=== PATIENT | male | born 1990 | race Caucasian/White ===

== ENCOUNTER 2018-01-18 19:11 | Emergency (ER) | payer MEDICAID, SELFPAY ==
[2018-01-18 19:12] VITALS: BP 140/80; PULSE 114; RESP 16; TEMP 36.8; O2SAT 98; BMI 31.7
--- NOTE | 2018-01-18 20:02 | RAD_ITS ---
STUDY: X-RAY - LEFT FOOT CLINICAL: Male, 27 years old. Pain. Horse stepped on foot. TECHNIQUE: 3 view(s) of the foot. COMPARISON: None. FINDINGS: There is no evidence of fracture or dislocation. There are no significant degenerative changes. There are no radiodense foreign bodies. RAD/Foot min 3 Views IMPRESSION: No fracture or dislocation. Electronically Signed: Nikko Sanderson, at 20:28 EDT Tel , Service support ,
[2018-01-18 20:28] LABS: Absolute Lymphocyte Count 2.46 X10^3/ul (0.83-4.51); Basophil# 0.02 X10^3/uL; Basophil% 0.2 % (0-1); Eosinophil# 0.12 X10^3/uL; Eosinophils% 1.3 % (0-5); Hematocrit 44.8 % (40-54); Hemoglobin 15.4 g/dl (13.0-16.5); Lymphocyte # 2.46 X10^3/ul (4.0); Lymphocyte % 27.3 % (19-41); Mean Corp Hgb Conc 34.4 g/gl (32-36); Mean Corpuscular Hgb 28.3 pg (27.0-32.0); Mean Corpuscular Volume 82.2 fL (80-94); Monocyte# 0.44 X10^3/uL; Monocyte% 4.9 % (0-10); Neutrophil # 5.95 X10^3/uL (2.7-7.7); Neutrophil % 66.2 % (47-70); POSITIVE COUNT NO; POSITIVE DIFFERENTIAL NO; POSITIVE MORPHOLOGY NO; Platelet Count 250 K/mm3 (150-450); RBC Distribution Width CV 12.5 % (11.6-14.6); RBC Distribution Width SD 36.9 fl (35.1-43.9); Red Blood Count 5.45 M/mm3 (4.6-6.2)
[2018-01-18 20:33] LABS: Anion Gap 5 (5-15); BUN 15 mg/dL (7-18); BUN/Creat Ratio 14.9 RATIO (10-20); Calcium,Total 8.9 mg/dL (8.5-10.1); Chloride 105 mmol/L (98-107); Creatinine, Serum 1.01 mg/dL (0.70-1.30); EST Glomerular Filtration Rate 94 mL/min (>60); Est Glom Filt Rate - Afr Amer 114 mL/min (>60); Estimated Creatinine Clearance 110.83 ml/min; Glucose 228 mg/dL (74-106); Potassium 3.6 mmol/L (3.5-5.1); Sodium Level 139 mmol/L (136-145)
--- NOTE | 2018-01-18 21:26 | ED.DCSUM_ITS ---
- ER Visit Summary Date of Service: 01/18/18 Chief Complaint: Foot injury with possible infection History of Present Illness: The patient is a 27 M who had his left foot stepped on by a horse 2 or 3 weeks ago. He states toes 3 through 5 were ecchymotic. He then developed a red swollen lesion at the base of his fourth toe. He does admit he tried to open it a few days ago but did not get any drainage out of it. He is a diabetic and states his blood sugars have been doing okay. He denies fever or chills. Physical Examination: Vital signs significant for heart rate 114, otherwise normal. Patient sitting upright in bed no acute distress. He is nontoxic appearing. Head neck examination is normal. Heart is regular rate and rhythm without murmur. Lung sounds are clear. Lower extremity examination was erythema with mild edema to the proximal left fourth toe. There is minimal erythema over the metatarsal region of his foot. There is no lymphangitic streaking. I do not find any evidence of fluctuance or focal abscess. Test Results: CBC and chemistry studies are significant only for glucose of 228. Left foot x-rays shows no fracture or dislocation. No underlying bone changes. Emergency Department Course and Treatment: Patient be treated with Bactrim and Keflex. He was advised if erythema worsens or if he gets lymphangitic streaking he is to return for IV antibiotics. Treatment Plan: [] Disposition: Discharge Impression: Left foot cellulitis This note was generated with [employer] dictation software. It may contain incorrect words, spelling, and punctuation that were not noted in review of the chart prior to signing ED Disposition - Plan for ED Patient: Chief Complaint: Wound Referrals: Mervin Short MD [Primary Care Provider] -
--- NOTE | 2018-01-18 21:26 | ED.DEP ---
ED Disposition - Plan for ED Patient: Disposition: Home or Assisted Living Chief Complaint: Wound Instructions: ED Infec Skin Cellulitis Prescriptions: Cephalexin [Keflex] 500 mg PO Q6 #40 capsule Smz/Tmp Ds [Bactrim Ds] 1 tablet PO BID #20 tablet Referrals: Mervin Short MD [Primary Care Provider] - 1 Week
[2018-01-18] MEDS: Smz/Tmp Ds Tablet 1 TABLET PO (21:50)
[2018-01-18] MEDS: Cephalexin 250 MG Capsule 500 MG PO (21:50)
[2018-01-18 21:51] VITALS: BP 141/91; RESP 18; O2SAT 98
== END 2018-01-18 21:52 | disposition home or self-care (01) ==
PROVIDERS: Emergency Provider Emergency Medicine; Family Provider Family Medicine; PCP Family Medicine
DX: L03.032 Cellulitis of left toe (principal); B96.89 Other specified bacterial agents as the cause of diseases classified elsewhere; E11.9 Type 2 diabetes mellitus without complications; Z79.4 Long term (current) use of insulin
CPT/HCPCS: 73630; 80048; 85025; 99284; A4216

== ENCOUNTER → 2018-05-10 09:34 | Outpatient (CLI) | payer MEDICAID, SELFPAY ==
[2018-05-10 08:21] VITALS: BMI 33.8
[2018-05-10 11:28] LABS: Hemoglobin A1c 8.7 % (4.2-6.3)
[2018-05-10 11:37] LABS: Microalbumin,Random Urine 67.9 mg/L (NO RANGE EST.); Microalbumin:Creatinine Ratio 21.2 mg/g CRE (<30 mg/g CRE)
[2018-05-10 11:41] LABS: ALB/GLOB Ratio 1.1 RATIO (0.9-2.4); AST(SGOT) 31 U/L (15-37); Alanine Aminotransfer ALT/SGPT 37 U/L (16-61); Albumin, Serum 3.2 g/dL (3.2-5.0); Alkaline Phosphatase 103 U/L (45-117); Anion Gap 11 (5-15); BUN 12 mg/dL (7-18); Calcium,Total 8.1 mg/dL (8.5-10.1); Chloride 104 mmol/L (98-107); Cholesterol 82 mg/dL (200); EST Glomerular Filtration Rate 124 mL/min (>60); Est Glom Filt Rate - Afr Amer 149 mL/min (>60); Globulin 2.8 g/dL (2.2-4.2); Glucose 187 mg/dL (74-106); High Density Lipoprotein 32 mg/dL; Potassium 3.3 mmol/L (3.5-5.1); Sodium Level 142 mmol/L (136-145); Triglycerides 47 mg/dL; Very Low Density Lipoprotein 9 mg/dL (5-40)
== END ==
PROVIDERS: Family Provider Family Medicine; PCP Family Medicine; Referring Provider Nurse Practitioner; Visit Provider Nurse Practitioner
DX: E10.65 Type 1 diabetes mellitus with hyperglycemia (principal)
CPT/HCPCS: 36415; 80053; 80061; 82043; 82570; 83036

== ENCOUNTER 2018-05-13 03:02 | Observation (INO) | payer MEDICAID, SELFPAY ==
[2018-05-10 08:21] VITALS: BMI 33.8
[2018-05-13] VITALS (17 sets, daily range): BP systolic 119–170; BP diastolic 67–78; PULSE 59–103; RESP 16–31; TEMP 36.8–37.1; O2SAT 79–98; BMI 34.6; BMI 32.5
--- NOTE | 2018-05-13 03:09 | ED.RN ---
NO OLD EKGS IN MUSE.
--- NOTE | 2018-05-13 03:18 | EKG12_ITS ---
Test Reason : SOB Blood Pressure : / mmHG Vent. Rate : 081 BPM Atrial Rate : 081 BPM P-R Int : 150 ms QRS Dur : 082 ms QT Int : 360 ms P-R-T Axes : 056 019 041 degrees QTc Int : 418 ms Normal sinus rhythm Normal ECG Confirmed by PABLO SOLOMON MD ([id number]), purchase request editor BETO BROWN ([id number]) on 05/14/2018 2:29:20 PM Referred By: Effie Felix Confirmed By:PABLO SOLOMON MD
--- NOTE | 2018-05-13 03:18 | RAD_ITS ---
HISTORY: sob, chest tightntess. 79% on room air upon arrival EXAM: XR Chest 2 Views: COMPARISON: None FINDINGS: EKG leads. Normal heart size. Nonspecific bilateral interstitial opacity, worse on the right, representing edema or possibly infiltrates. Fissural thickening is present and this favors edema. No pleural effusion. No pneumothorax. The bony thorax appears intact. RAD/Chest PA and Lateral IMPRESSION: 1. Bilateral widespread interstitial edema or possibly infiltrates, worse on the right. 2. Patient age of 28 years and interstitial fibrosis is believed unlikely. at 0404 Reported and signed by: Polo Leon MD Electronically Signed: Polo Leon, at 4:01 EST Tel , Service support ,
--- NOTE | 2018-05-13 03:19 | ED.VISSUMM ---
- ER Visit Summary Date of Service: 05/13/18 Chief Complaint: [] Shortness of breath History of Present Illness: The patient is a 28 M shortness of breath for the last 7 hours at rest continuous worse with exertion. No cough. He has had some chest tightness all day yesterday. Located in the center. It is mild. He thinks is from his breathing however. Blood sugars have been under control. He has asthma as a child but nothing recently. No DVT or PE risk factors. Cardiac risk factors only diabetes. No aortic dissection risk factors Physical Examination: Vital signs reviewed General: Well-nourished well-developed Head: Normocephalic atraumatic Eyes: Pupils equal round and reactive to light extraocular movements intact ENT: TMs clear no hemotympanum no trauma Neck: Nontender full range of motion Cardiovascular: Regular rate rhythm no murmurs normal S1-S2 Respiratory: crackles all lung watson bilaterally chest nontender Abdomen: Soft nontender nondistended normal bowel sounds no masses Back: Nontender no CVA tenderness Extremities: Nontender active range of motion ?4 extremities no trauma Skin: Normal color no trauma Neuro alert oriented cranial nerves II through XII intact normal strength sensation reflexes Test Results: [] Emergency Department Course and Treatment: [] EKG shows sinus rhythm at 81. T wave inversion in V2. Otherwise nothing acute. No acute ischemia. Patient given 1 breathing treatment. Lab work and chest x-ray obtained. Sleep breathing treatment helped somewhat. Placed on nasal cannula oxygen with good sats into the upper 90s. Given aspirin to protect his heart and 1 dose of Lasix IV 40 mg. He had 2 episodes urination after that and felt better. CBC normal. Chemistries normal except potassium 3.4. BNP is 77. Troponin is negative. Chest x-ray shows bilateral pulmonary edema, CTA of the chest shows bilateral pulmonary edema without PE or other abnormality. Patient has noncardiogenic pulmonary edema in my opinion. His B natruretic peptide is 77. He has no history of coronary artery disease. Perhaps this is a myocarditis. Patient has no infectious ideologies. He was discussed with the hospitalist and will be admitted. He is diuresing well on Lasix. Further testing will have to be done as an inpatient Treatment Plan: [] Disposition: [] Impression: [] Hypoxic respiratory failure Bilateral pulmonary edema Bilateral pleural effusions Critical CARE time: 74 minutes This note was generated with Dragon dictation software. It may contain incorrect words, spelling, and punctuation that were not noted in review of the chart prior to signing ED Disposition - Plan for ED Patient: Chief Complaint: Shortness of Breath Referrals: Mervin Short MD [Primary Care Provider] -
[2018-05-13] MEDS: Ipratropium/Albuterol Sulfate 3 ML AMPUL.NEB INHALATION ×3 (03:22→12:58)
[2018-05-13 03:34] LABS: Absolute Neutrophil Count 5.1 X10^3/uL (2.0-7.7); Basophil# 0.02 X10^3/uL; Basophil% 0.3 % (0-1); Eosinophil# 0.08 X10^3/uL; Eosinophils% 1.1 % (0-5); Hematocrit 40.1 % (40-54); Hemoglobin 13.5 g/dl (13.0-16.5); Mean Corp Hgb Conc 33.7 g/gl (32-36); Mean Corpuscular Hgb 27.6 pg (27.0-32.0); Mean Platelet Vol. 9.4 fl (6.2-12.0); Monocyte# 0.45 X10^3/uL; Monocyte% 6.1 % (0-10); Neutrophil # 5.13 X10^3/uL (2.7-7.7); Neutrophil % 69.4 % (47-70); POSITIVE COUNT NO; POSITIVE DIFFERENTIAL NO; POSITIVE MORPHOLOGY NO; Platelet Count 233 K/mm3 (150-450); RBC Distribution Width CV 13.5 % (11.6-14.6); RBC Distribution Width SD 39.8 fl (35.1-43.9); Red Blood Count 4.89 M/mm3 (4.6-6.2); White Blood Count 7.4 K/mm3 (4.4-11.0)
[2018-05-13] MEDS: Aspirin 81 MG TAB.CHEW 324 MG PO (03:35)
[2018-05-13 03:50] LABS: BUN 10 mg/dL (7-18); Chloride 107 mmol/L (98-107); Creatinine, Serum 0.77 mg/dL (0.70-1.30); EST Glomerular Filtration Rate 129 mL/min (>60); Est Glom Filt Rate - Afr Amer 156 mL/min (>60); Glucose 142 mg/dL (74-106); Potassium 3.4 mmol/L (3.5-5.1); Sodium Level 143 mmol/L (136-145)
[2018-05-13 03:51] LABS: Anion Gap 7 (5-15)
--- NOTE | 2018-05-13 03:51 | CT_ITS ---
HISTORY: sudden onset sob last evening, chest tightness, 79% on ra, hx diab-takes insulin, TECHNIQUE: Helically acquired images were obtained of the chest following IV contrast as per pulmonary angiogram protocol with 3D reconstructions. A radiation dose optimization technique was used for this scan. IV Contrast dosage and agent: 100 cc Isovue 370 contrast COMPARISON: None FINDINGS: PULMONARY ARTERIES: Normal in caliber. No pulmonary embolism. AORTA AND GREAT VESSELS: Normal in caliber. No evidence of dissection. HEART AND PERICARDIUM: Heart size is normal. There is no pericardial effusion. Bilateral interstitial pulmonary edema with fissural thickening. Small right and tiny left pleural effusions. No pulmonary consolidation. No pneumothorax. CT/CTA Chest W/WO Contrast IMPRESSION: 1. Bilateral interstitial pulmonary edema with bilateral pleural effusions, small on the right and tiny on the left 2. No PE or aortic dissection. No pericardial effusion Individualized dose optimization techniques were used for this CT. at 0441 Reported and signed by: Polo Leon MD Electronically Signed: Polo Leon, at 4:38 EST Tel , Service support ,
[2018-05-13] MEDS: Furosemide 40 MG/4 ML Vial IV ×2 (04:11→09:55)
--- NOTE | 2018-05-13 04:54 | HP.PCM_ITS ---
Problem List (1) Acute hypoxemic respiratory failure Status: Acute (2) HTN (hypertension) Status: Chronic (3) Diabetes type 1, uncontrolled Status: Acute Qualifiers: Glycemic state: with hypoglycemia Coma presence: without coma Qualified Code(s): E10.649 - Type 1 diabetes mellitus with hypoglycemia without coma History of Present Illness Date of Admission: 05/13/18 Chief Complaint: shortness of breath The patient is a 28 year old M who is a omalley and with with a significant histo ry of childhood asthma with last episode about 15 years ago; type 1 diabetes; tobacco abuse; recently diagnosed hypertension who presented with progressively worsening shortness of breath that few hours before his admission. His symptoms started overnight and he was unable to sleep because of shortness of breath. Even with sleeping in a chair position he was still unable to sleep. His shortness of breath is at rest and it increases on exertion. Further patient reported that earlier in the day before his symptoms started he had chest tightness. He reports some mild rhinorrhea not different from baseline. He denies coughing. He denies any fever or chills. At first patient denied any exposure to respiratory stimulants. However upon further thoughts he reported that about 5 days prior to his symptoms he was exposed to mold from a bail of corn stalks. He reports that the bail had extensive mold on it. At the emergency departments his oxygen saturation was 79% on room air. Chest x-ray showed diffused ground ground opacity worse on the right. CTA of the chest shows diffuse pulmonary infiltrates and small pleural effusion was on the right side. BNP was unremarkable. At emergency department patient received DuoNeb; aspirin; Lasix and was placed on oxygen by nasal cannula. Past Medical History Past Medical History (Chronic Problems): Chronic Problems (Last Reviewed 05/10/18 @ 08:20 by Letitia Canseco) HTN (hypertension) (Chronic) Medical History: Medical History (Last Reviewed 05/10/18 @ 08:20 by Letitia Canseco) Chronic headaches R51 Diabetes mellitus type 1 E10.9 Dx : age 13 last exacerbation : dka : 2006 hypoglycemic episode : never er visit : 2006 Allergies No Known Allergies Allergy (Verified 05/13/18 03:06) Home Medications: Ambulatory Orders Medication Instructions Recorded insulin glargine (U- 100) 100 30 unit SC QDAY #10 ml 03/08/18 unit/mL subcutaneous solution insulin lispro (U- 100) 100 See Rx Instructions SC .COMPLEX 03/08/18 unit/mL subcutaneous solution #30 ml lisinopril 2.5 mg tablet 2.5 mg PO DAILY #30 tab 05/10/18 Flash Glucose Scanning Bodfish 0 dose .ROUTE .MEDSUPPLY 05/13/18 [FreeStyle Denise 14 Day Bodfish] Flash Glucose Sensor [FreeStyle 0 dose .ROUTE .MEDSUPPLY 05/13/18 Denise 14 Day Sensor] Surgical History: Surgical History (Last Reviewed 05/13/18 @ 06:56 by Prasanna Berrios MD) H/O oral surgery Z98.890 Lives: Alone Smoking Status: Current some day smoker Tobacco Use: Chew Alcohol: None - *Family History Maternal Family History: Family History (Last Reviewed 05/13/18 @ 07:00 by Prasanna Berrios MD) Mother Diabetes CKD (chronic kidney disease) Paternal Family History: Family History (Last Reviewed 05/13/18 @ 07:00 by Prasanna Berrios MD) Mother Diabetes CKD (chronic kidney disease) Review of Systems Constitutional: Denies: Chills, Fever, Weight Change HEENT: Denies: Head Aches, Sinus Congestion, Sinus Drainage Cardiovascular: Reports: Chest Pain. Denies: Palpitations Respiratory: Reports: Shortness of Breath, Shortness of breath at rest, Shortness of breath upon exertion. Denies: Hemoptysis, Sputum production Gastrointestinal: Denies: Abdominal Pain, Nausea, Vomiting Genitourinary: Denies: Dysuria Musculoskeletal: Denies: Joint Pain, Joint Tenderness Skin: Denies: Rash, Wounds Neurological: Denies: Numbness, Tingling, Focal weakness Psychiatric: Denies: Anxiety, Depression, Homicidal Ideations, Suicidal Ideations Hematologic/ Lymphatic: Denies: Easy Bruising, Easy Bleeding VTE Information - Inpt Only VTE Present on Admission: No VTE Mechan Device Prophylaxis: SCD's VTE Pharm Prophylaxis ordered?: No Patient Problems: Active and Suspected Problems (Last Reviewed 05/10/18 @ 08:20 by Letitia Canseco) Acute hypoxemic respiratory failure (Acute) - Physical Exam General: Alert, Oriented x3, Cooperative HEENT: Atraumatic, PERRLA, EOMI, Normocephalic Neck: Supple, No JVD, Negative Carotid Bruits Lungs: Normal air movement, Rales - fine scatterred diffuse rales. Cardiovascular: Regular rate, No murmurs Abdomen: Bowel Sounds Present, Soft, Non Tender Extremities: No edema, Capillary Refill Less than 3 Seconds Skin: No rashes, No breakdown Musculoskeletal: No Tenderness to Palpation of Joints or Extremities Neurological: Facial Droop Psych/Mental Status: Normal Affect, Appropriate Vital Signs Temp Pulse Resp BP Pulse Ox 98.8 F 71 31 H 157/71 H 95 05/13/18 03:03 05/13/18 04:12 05/13/18 04:12 05/13/18 04:12 05/13/18 04:12 Oxygen Flow Rate (L/min) 2 Oxygen Delivery Method Nasal Cannula Weight: 106.4 kg Body Mass Index (BMI) 34.6 Laboratory Tests Past 24 Hrs 05/13/18 05/13/18 05/13/18 03:26 03:26 03:26 WBC 7.4 RBC 4.89 Hgb 13.5 Hct 40.1 MCV 82.0 MCH 27.6 MCHC 33.7 RDW 13.5 RDW Differential 39.8 Plt Count 233 MPV 9.4 Immature Gran % (Auto) 0.100 Neut % (Auto) 69.4 Lymph % (Auto) 23.0 Slope % (Auto) 6.1 Eos % (Auto) 1.1 Baso % (Auto) 0.3 Absolute Neuts (auto) 5.1 Absolute Lymphs (auto) 1.70 Total Counted Not Reportable Sodium 143 Potassium 3.4 L Chloride 107 Carbon Dioxide 29.0 Anion Gap 7 BUN 10 Creatinine 0.77 Estim Creat Clear Calc 144.10 Est GFR (MDRD) Af Amer 156 Est GFR (MDRD) Non-Af 129 BUN/Creatinine Ratio 13.0 Glucose 142 H Calcium 8.0 L Troponin I < 0.015 B-Natriuretic Peptide 77.0 Assessment/Plan All Active Problems (Last Reviewed 05/10/18 @ 08:20 by Letitia Canseco) Acute hypoxemic respiratory failure (Acute) Diabetes type 1, uncontrolled (Acute) 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 Acute hypoxemic respiratory failure. Patient with radiographic evidence of ground glass opacity; normal BNP and young age. Differential diagnosis include Hypersensitivity pneumonitis from exposure of mold; other interstitial lung disease and Heart failure. Patient has had multiple urination after Lasix administration. Patient has noticed considerable improvements in SOB after administration of IV Lasix and breathing treatments which is not surprising since Lasix will definitely pool some fluid from his lungs and improve his breathing. We will hold off further Lasix at this time We will get an echocardiogram; respiratory pathogen panel and TSH. If echocardiogram unremarkable it will make suspicion of hypersensitivity pneumonitis higher; and if patient still symptomatic consider glucocorticoids and scholarship counselor to avoid mold. His cardiac enzymes on presentation was unremarkable. Due to chest tightness he received aspirin for 324 mg at emergency department. Will trend troponin at this time. Hypokalemia On admission potassium was 3.4. In view of patient having received Lasix and on scheduled albuterol it is likely that his potassium level will go down even further. Potassium Chloride 40 meq PO X1 ordered BMP in am of next day. Hypertension Patient stated that on his last visit with Jac Felix CNP with endocrinology group, Lisinopril 2.5mg was prescribed for slightly elevated blood pressure and for its nephro protective effects for this patient with diabetes. Patient is yet to start taking Lisinopril which has already been prescribed. On admission here his blood pressure is severely elevated with systolic of 170 confirming likely essential hypertension. Because of his respiratory distress will not start lisinopril which if with allergy may confound symptoms. As needed hydralazine ordered for now. As needed labetalol ordered because of respiratory symptoms. Diabetes mellitus On admission his blood glucose was within goal. Patient reported that at night he takes Lantus 10 units. And for each 10 g of carbohydrate he takes 1 unit of short acting insulin. While inpatient we will adjust his long-acting insulin to 8 units nightly; and put him on medium dose correction scale. Adjust blood glucose regimen as necessary. History of Asthma Last asthma attack was 15 years ago. Patient with radiographic evidence of opacities in his lungs that points away from asthma. DVT prophylaxis Low risk SCD ordered. Encouraged to ambulate. Code Visit Inpatient E&M: 18750 Init Hosp L3
--- NOTE | 2018-05-13 06:12 | ECHOD_ITS ---
Reason For Study: DYSPNEA/SOB Procedure This was a 2D Doppler, Color Flow transthoracic echocardiogram. Exam performed portable in patient room. Left Ventricle Normal size and thickness. The estimated ejection fraction is 65 %. Normal diastology for age. No regional wall motion abnormalities noted. Right Ventricle Normal size and thickness. Normal systolic function. Atria Normal left atrium. Normal right atrium. Normal atrial septum. Mitral Valve The mitral valve is structurally normal. No prolapse or stenosis seen. Tricuspid Valve Normal tricuspid valve. Trivial tricuspid valve insufficiency. Right ventricular systolic pressure estimated to be 27 mmHg. Aortic Valve Normal aortic valve. Trisinus/trileaflet aortic valve. Pulmonic Valve Normal pulmonic valve. Great Vessels Normal aortic root. Normal arch. Normal inferior vena cava. Inferior vena cava collapse with sniff. Pericardium/Pleural No pericardial effusion. MMode/2D Measurements & Calculations LVIDd: 5.2 cm IVSd: 0.98 cm Ao root diam: 2.6 cm LVIDs: 3.1 cm LVPWd: 1.0 cm RVDd: 3.2 cm FS: 40.4 % LAV(MOD-bp): 67.3 ml LA A4 area: 20.9 cm2 LA dimension(2D): 4.4 cm LAV(MOD-bp) Indexed: 30.5 ml/m2 LAV(MOD-sp2): 69.6 ml LAV(MOD-sp4): 65.0 ml RA A4 area: 16.7 cm2 Time Measurements MV dec time: 0.18 sec Doppler Measurements & Calculations MV E max gunnar: 141.2 cm/sec Lat Peak E' Gunnar: 15.8 cm/sec Med Peak E' Gunnar: 13.1 cm/sec MV A max gunnar: 98.2 cm/sec E/E' lat: 8.9 E/E' med: 10.8 MV E/A: 1.4 LV V1 max: 120.8 cm/sec PA V2 max: 147.1 cm/sec TR max gunnar: 235.4 cm/sec LV V1 max P.8 mmHg TR max P.2 mmHg Interpretation Summary The estimated ejection fraction is 65 %. Normal diastology for age. Trivial tricuspid valve insufficiency. Right ventricular systolic pressure estimated to be 27 mmHg. There is no comparison study available. Ordering Physician: Prasanna Berrios Referring Physician: Mervin Short Performed By: Maddy Saldaña, VINEET, RVT
[2018-05-13 07:06] LABS: Bedside Glucose 226 mg/dL (70-110)
[2018-05-13 07:34] LABS: Albumin, Serum 3.3 g/dL (3.2-5.0)
[2018-05-13] MEDS: 0.9% NaCl Peripheral Flush Adult/Peds IV (09:55)
[2018-05-13] MEDS: Insulin Lispro 100 UNIT/ML INSULN.PEN SQ ×3 (09:58→18:25)
[2018-05-13 11:30] LABS: Bedside Glucose 190 mg/dL (70-110)
--- NOTE | 2018-05-13 14:10 | CASEMGMT ---
MIRELLA ORTIZ INITIAL ASSESSMENT D/C PLAN: Home Face to Face with patient for initial transition planning/care coordination assessment. MIRELLA ORTIZ introduced self and role at [facility]. Pt resting in bed, parents and brother @ bedside. Pt agreeable to assessment/answering questions with family present. Care providers, pharmacy, and demographics verified. PCP: Deja Specialists: MATT Yoder/endrocrinology. Preferred Pharmacy: [facility]. [facility] Retail pharmacy on discharge day only. Insurance: [employer] Prescription Benefit: Yes. [facility] has no difficulty with getting or paying for prescriptions. Pt is diabetic. [facility] has all diabetic supplies and medications. Provided pt with Diabetic Clinic information card. Living Will/HPOA: Does not have either and is not interested in further information. LNOK: Parents Living Arrangements: Lives alone. Independent. Uses no DME and denies needs. Transportation: Pt drives. Parents or brother able to assist with transportation if needed. HHC/SNF: Has never used HHC and has never been to a SNF. No needs identified. Pt wishes to return home. Denies needs or concerns at this time. Instructed to notify CM if he should have any needs, concerns, or questions. CM to follow for any further discharge planning needs that may arise. Jillian PACHECO RN, CM
[2018-05-13 16:21] LABS: Bedside Glucose 265 mg/dL (70-110)
--- NOTE | 2018-05-13 16:29 | NURSING ---
Nursing not aware of patient having home insulin pen. Pt notified this RN that he administered 12 Units of home insulin prior to lunch without asking RN. RN educated pt on hospital policy about not administering home meds themselves. RN removed insulin from pt room and placed in locked cabinet in med room. Will continue to monitor blood sugars.
[2018-05-13 18:31] LABS: Bedside Glucose 192 mg/dL (70-110)
--- NOTE | 2018-05-13 18:57 | NURSING ---
Reviewed and agreed on all charting with Brian Wood RN
[2018-05-13 21:50] LABS: Bedside Glucose 142 mg/dL (70-110)
[2018-05-14] VITALS (7 sets, daily range): BP systolic 135–136; BP diastolic 72–78; PULSE 66–74; RESP 10–16; TEMP 36.9–37; O2SAT 94–96
[2018-05-14 06:04] LABS: Absolute Lymphocyte Count 1.54 X10^3/ul (0.83-4.51); Absolute Neutrophil Count 3.9 X10^3/uL (2.0-7.7); Basophil# 0.02 X10^3/uL; Basophil% 0.3 % (0-1); Eosinophil# 0.17 X10^3/uL; Eosinophils% 2.8 % (0-5); Hematocrit 41.2 % (40-54); Hemoglobin 13.6 g/dl (13.0-16.5); Lymphocyte # 1.54 X10^3/ul (4.0); Lymphocyte % 25.2 % (19-41); Mean Corpuscular Hgb 27.5 pg (27.0-32.0); Mean Corpuscular Volume 83.2 fL (80-94); Monocyte# 0.48 X10^3/uL; Monocyte% 7.9 % (0-10); Neutrophil # 3.88 X10^3/uL (2.7-7.7); Neutrophil % 63.6 % (47-70); Platelet Count 244 K/mm3 (150-450); RBC Distribution Width CV 13.7 % (11.6-14.6); RBC Distribution Width SD 41.2 fl (35.1-43.9); Red Blood Count 4.95 M/mm3 (4.6-6.2); White Blood Count 6.1 K/mm3 (4.4-11.0)
[2018-05-14 06:10] LABS: POSITIVE COUNT NO; POSITIVE DIFFERENTIAL NO; POSITIVE MORPHOLOGY NO
[2018-05-14] MEDS: Insulin Lispro 100 UNIT/ML INSULN.PEN SQ (06:16)
[2018-05-14 06:25] LABS: Anion Gap 7 (5-15); BUN 9 mg/dL (7-18); BUN/Creat Ratio 12.8 RATIO (10-20); Calcium,Total 8.1 mg/dL (8.5-10.1); Chloride 106 mmol/L (98-107); EST Glomerular Filtration Rate 143 mL/min (>60); Est Glom Filt Rate - Afr Amer 173 mL/min (>60); Estimated Creatinine Clearance 158.51 ml/min; Glucose 250 mg/dL (74-106); Potassium 3.5 mmol/L (3.5-5.1); Sodium Level 143 mmol/L (136-145)
[2018-05-14 06:26] LABS: Bedside Glucose 295 mg/dL (70-110)
[2018-05-14] MEDS: Ipratropium/Albuterol Sulfate 3 ML AMPUL.NEB INHALATION (06:45)
--- NOTE | 2018-05-14 11:20 | DCINST_ITS ---
- Discharge Diagnoses Current Active Problems: Current Active and Chronic Problems (Last Reviewed 05/10/18 @ 08:20 by Lettiia Canseco) Acute hypoxemic respiratory failure (Acute) HTN (hypertension) (Chronic) You will use the following diet at home:: Calorie/Carbohydrate Controlled (specify 1200, 1400, etc) - 2000 angela/day, Cardiac Your food should be the consistency of: Regular Your liquids should be the consistency of: Regular/Thin Discharge Activity: Return to Normal Activity Allergies/Adverse Reactions: Allergies No Known Allergies Allergy (Verified 05/13/18 03:06) Medications to take at Discharge insulin lispro (U- 100) 100 unit/mL subcutaneous solution See Rx Instructions SC .COMPLEX #30 ml 03/08/18 Insulin Glargine,Hum.rec.anlog [Lantus] 10 unit SQ QHS 05/13/18 Albuterol IH (ProAir) [Proair Hfa] 1 puff INHALATION Q6H PRN PRN #1 inhaler 05/14/18 Lisinopril [Prinivil] 5 mg PO DAILY #30 tablet 05/14/18 The following prescriptions were given: Albuterol IH (ProAir) [Proair Hfa] 1 puff INHALATION Q6H PRN PRN #1 inhaler PRN Reason: Sob &/Or Wheezing Lisinopril [Prinivil] 5 mg PO DAILY #30 tablet Primary Care Physician: Mervin Short MD [Primary Care Provider] - Please follow up with your Primary Care Physician in: 1 week Test Results: Test results from this visit will be discussed in further detail at your follow- up appointment, if applicable.
--- NOTE | 2018-05-14 14:36 | DS.PCM_ITS ---
<Jose Haas - Last Filed: 05/14/18 14:27> Discharge Date and Diagnosis Date of Admission: 05/13/18 Date of Discharge: 05/14/18 - Primary Discharge Diagnosis Acute hypoxic respiratory failure 2/2 interstitial pulmonary edema T1DM HTN - Secondary Discharge Diagnosis Chronic Problems (Last Reviewed 05/10/18 @ 08:20 by Letitia Canseco) HTN (hypertension) (Chronic) Hospital Course and Treatment Imaging Results: RAD/Chest PA and Lateral IMPRESSION: 1. Bilateral widespread interstitial edema or possibly infiltrates, worse on the right. 2. Patient age of 28 years and interstitial fibrosis is believed unlikely. CT/CTA Chest W/WO Contrast IMPRESSION: 1. Bilateral interstitial pulmonary edema with bilateral pleural effusions, small on the right and tiny on the left 2. No PE or aortic dissection. No pericardial effusion Individualized dose optimization techniques were used for this CT. Echo: Interpretation Summary The estimated ejection fraction is 65 %. Normal diastology for age. Trivial tricuspid valve insufficiency. Right ventricular systolic pressure estimated to be 27 mmHg. There is no comparison study available. Operations: None Procedures: 2-D Echocardiogram Summary of Care Provided: Hospital Course: The patient is a 28 year old M with pmhx of distant asthma, type 1 DM, HTN who presented to the ER with SOB and hypoxic at 79% on RA. He had diffuse interstitial edema on CXR and CTA chest. He was placed on oxygen, lasix and aerosols and admitted to the PCU. He was weaned off O2 quickly and responded rapidly to therapy. Echo was obtained without acute changes. He had no fever or leukocytosis during his stay. 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 Without fever or leukocytosis and with rapid response to non-abx therapy it was felt that fungal or bacterial etiology was unlikely. He may have had a viral interstitial process, or an asthma like issue. With his DMt1 and his improvement with lasix and aerosols steroids were deferred and he improved without them. He was stable at rest and with exertion ambulating around the unit. If at discharge he worsens he may benefit from steroids as an outpatient. He was provided an albuterol inhaler at [place]. He will need close follow up with his PCP and possible outpatient referral to pulmonology. He was discharged home in stable condition. Also of note lisinopril was increased while here 2/2 poorly controlled htn. This patient was seen by Jose Haas PA-C under the supervision of Doctor Michelle. [] - Physical Exam General: Alert, Oriented x3, Cooperative HEENT: Atraumatic, PERRLA, EOMI, Normocephalic Neck: Supple, No JVD, Negative Carotid Bruits Lungs: Rhonchi - left side only Cardiovascular: Regular rate, No murmurs Abdomen: Bowel Sounds Present, Soft, Non Tender Extremities: No edema, Capillary Refill Less than 3 Seconds Skin: No rashes, No breakdown Musculoskeletal: No Tenderness to Palpation of Joints or Extremities Neurological: Cranial nerves II-XII grossly intact Psych/Mental Status: Normal Affect, Appropriate Vital Signs Temp Pulse Resp BP Pulse Ox 98.4 F 72 14 135/78 H 95 05/14/18 10:29 05/14/18 10:29 05/14/18 10:29 05/14/18 10:29 05/14/18 10:29 Oxygen Flow Rate (L/min) 2 Oxygen Delivery Method Room Air Weight: 216 lb 4.375 oz Body Mass Index (BMI) 32.5 Intake and Output for Last 24 Hours 05/12/18 05/13/18 05/14/18 23:59 23:59 23:59 Intake Total 840 / 840 240 / 240 Output Total 1475 / 1475 Balance -635 / -635 240 / 240 Microbiology Past 72 Hours 05/13/18 Unknown Respiratory Panel (PCR) - Final Mucosa - Nose Laboratory Tests Past 24 Hrs 05/14/18 05/14/18 05:45 05:45 WBC 6.1 RBC 4.95 Hgb 13.6 Hct 41.2 MCV 83.2 MCH 27.5 MCHC 33.0 RDW 13.7 RDW Differential 41.2 Plt Count 244 MPV 10.0 Immature Gran % (Auto) 0.200 Neut % (Auto) 63.6 Lymph % (Auto) 25.2 [place] % (Auto) 7.9 Eos % (Auto) 2.8 Baso % (Auto) 0.3 Absolute Neuts (auto) 3.9 Absolute Lymphs (auto) 1.54 Total Counted Not Reportable Sodium 143 Potassium 3.5 Chloride 106 Carbon Dioxide 30.0 Anion Gap 7 BUN 9 Creatinine 0.70 Estim Creat Clear Calc 158.51 Est GFR (MDRD) Af Amer 173 Est GFR (MDRD) Non-Af 143 BUN/Creatinine Ratio 12.8 Glucose 250 H Calcium 8.1 L POC Glucose 05/14/18 05/13/18 05/13/18 06:15 21:08 18:23 POC Glucose 295 H 142 H 192 H 05/13/18 16:08 POC Glucose 265 H Discharge Diet: Low fat/ Low Cholesterol, 2000 Calorie Control Diet, 2000 mg Sodium Diet Discharge Activity: Return to Normal Activity Home Medications: Medications to take at Discharge insulin lispro (U- 100) 100 unit/mL subcutaneous solution See Rx Instructions SC .COMPLEX #30 ml 03/08/18 Insulin Glargine,Hum.rec.anlog [Lantus] 10 unit SQ QHS 05/13/18 Albuterol IH (ProAir) [Proair Hfa] 1 puff INHALATION Q6H PRN PRN #1 inhaler 05/14/18 Lisinopril [Prinivil] 5 mg PO DAILY #30 tablet 05/14/18 Following Prescrptions Were Given to Patient: Albuterol IH (ProAir) [Proair Hfa] 1 puff INHALATION Q6H PRN PRN #1 inhaler PRN Reason: Sob &/Or Wheezing Lisinopril [Prinivil] 5 mg PO DAILY #30 tablet Primary Care Physician: Mervin Short MD [Primary Care Provider] - Please follow up with your Primary Care Physician in: 1 week Please Follow Up With: Mervin Short MD Disposition: Home Minutes spent on discharge:: 40 Patient Condition:: Stable Medical Necessity - Tobacco Use Smoking Status: Current some day smoker Tobacco Use: Chew Meaningful Use Info Meaningful Use Diagnoses (Choose all that apply): None applicable <Felipe Martinez - Last Filed: 05/14/18 16:06> Discharge Date and Diagnosis - Secondary Discharge Diagnosis Chronic Problems (Last Reviewed 05/10/18 @ 08:20 by Letitia Canseco) HTN (hypertension) (Chronic) Hospital Course and Treatment Summary of Care Provided: The patient is a 28 year old M [] - Physical Exam Vital Signs Temp Pulse Resp BP Pulse Ox 98.4 F 72 14 135/78 H 95 05/14/18 10:29 05/14/18 10:29 05/14/18 10:29 05/14/18 10:29 05/14/18 10:29 Oxygen Flow Rate (L/min) 2 Oxygen Delivery Method Room Air Weight: 216 lb 4.375 oz Body Mass Index (BMI) 32.5 Intake and Output for Last 24 Hours 05/12/18 05/13/18 05/14/18 23:59 23:59 23:59 Intake Total 840 / 840 240 / 240 Output Total 1475 / 1475 Balance -635 / -635 240 / 240 Microbiology Past 72 Hours 05/13/18 Unknown Respiratory Panel (PCR) - Final Mucosa - Nose Laboratory Tests Past 24 Hrs 05/14/18 05/14/18 05:45 05:45 WBC 6.1 RBC 4.95 Hgb 13.6 Hct 41.2 MCV 83.2 MCH 27.5 MCHC 33.0 RDW 13.7 RDW Differential 41.2 Plt Count 244 MPV 10.0 Immature Gran % (Auto) 0.200 Neut % (Auto) 63.6 Lymph % (Auto) 25.2 [place] % (Auto) 7.9 Eos % (Auto) 2.8 Baso % (Auto) 0.3 Absolute Neuts (auto) 3.9 Absolute Lymphs (auto) 1.54 Total Counted Not Reportable Sodium 143 Potassium 3.5 Chloride 106 Carbon Dioxide 30.0 Anion Gap 7 BUN 9 Creatinine 0.70 Estim Creat Clear Calc 158.51 Est GFR (MDRD) Af Amer 173 Est GFR (MDRD) Non-Af 143 BUN/Creatinine Ratio 12.8 Glucose 250 H Calcium 8.1 L POC Glucose 05/14/18 05/13/18 05/13/18 06:15 21:08 18:23 POC Glucose 295 H 142 H 192 H 05/13/18 16:08 POC Glucose 265 H Code Visit Addendum: Dr. Martinez I personally examined the patient and reviewed the chart. I agree with the above. 28-year-old male presenting with acute hypoxic respiratory failure with oxygen saturation of 79% on room air, he states that he had been baling hay and had been inhaling particles without wearing a respirator. After a dose of Lasix in the ER he recovered very quickly, and an echo was performed which was normal. He continued to do well over the course of the next day and on the day of discharge he was ambulatory and breathing okay and the CT scan had demonstrated the ground groundglass opacities without signs of consolidation therefore he was discharged home on an albuterol inhaler, and the direction to see his primary care physician as an outpatient. He continues to have shortness of breath the recommendation would be to see pulmonology for PFTs. Also given that he is a type I diabetic and was slightly hypertensive here into the 130s he was discharged on lisinopril 5 mg. He will need outpatient follow-up for another BMP in approximately 1-2 weeks. Inpatient E&M: [id number] Disch Hosp
--- NOTE | 2018-05-17 14:37 | CASEMGMT ---
RN CM Discharge Follow-up Phone Call: JN: Anayeli Strata: 3 Call Date: 05/17/18 Discharge Date: 05/14/18 Time of Call: 1435 Duration: 0 ? Admitting Diagnosis: Resp failure, DM, HTN This RN DIANA attempted to contact pt via telephone in regard to discharge follow-up. Voicemail received and message left requesting a return call if the pt has any questions or concerns. Nola Patel RN
--- OUTSIDE RECORDS SUMMARY | 2018-07-08 05:24 | XMS RPT_ITS ---
:1990 Author Organization OHIP Support Name Relationship Address Phone XIOMARA, ANGIE/SHERRE Unavailable [address] + [place] [address] S Unavailable Unavailable Unavailable XIOMARA, ANGIE/SHERRE Unavailable [address] + [place] [address] S Unavailable Unavailable Unavailable XIOMARA, ANGIE/SHERRE Unavailable [address] + [place] [address] S Unavailable Unavailable Unavailable XIOMARA, ANGIE/SHERRE Unavailable [address] + [place] [address] S Unavailable Unavailable Unavailable XIOMARA, ANGIE/SHERRE Unavailable [address] + [place] [address] S Unavailable Unavailable Unavailable XIOMARA, ANGIE/SHERRE Unavailable [address] + [place] [address] S Unavailable Unavailable Unavailable XIOMARA, ANGIE/SHERRE Unavailable [address] + [place] [address] S Unavailable Unavailable Unavailable XIOMARA, ANGIE/SHERRE Unavailable [address] + [place] [address] UE Unavailable Unavailable Unavailable XIOMARA, ANGIE/SHERRE Unavailable [address] + [place] [address] UE Unavailable Unavailable Unavailable XIOMARA, ANGIE/SHERRE Unavailable [address] + [place] [address] UE Unavailable Unavailable Unavailable Care Team Providers Name Role Phone Rene Rodriguez Attending Unavailable Prasanna Berrios Referring Unavailable Effie Felix DENTAL TECHNICIAN APPRENTICE-C Attending Unavailable Effie Felix Attending Unavailable Mervin Short Referring Unavailable Shook, Effie J DENTAL TECHNICIAN APPRENTICE-C Attending Unavailable Mervin Short Referring Unavailable Deja, Mervin Primary Care Unavailable Deja, Mervin Primary Care Unavailable Marcie Riley Attending Unavailable Effie Felix DENTAL TECHNICIAN APPRENTICE-C Attending Unavailable Deja, Mervin Referring Unavailable Effie Felix DENTAL TECHNICIAN APPRENTICE-C Attending Unavailable Effie Felix DENTAL TECHNICIAN APPRENTICE-C Referring Unavailable Deja, Mervin Primary Care Unavailable Deja, Mervin Primary Care Unavailable Agyepong, Prasanna Admitting Unavailable Felipe Martinez Attending Unavailable Agyepong, Prasanna Admitting Unavailable Agyepong, Prasanna Attending Unavailable Deja, Mervin Primary Care Unavailable Agyepong, Prasanna Consulting Unavailable Agyepong, Prasanna Admitting Unavailable Deja, Mervin Primary Care Unavailable Felipe Martinez Consulting Unavailable Felipe Martinez Attending Unavailable IMCA Referring Unavailable Te MCCORMICK Attending Unavailable PROBLEMS PROBLEMS DATE TYPE CONDITION / CODE ATTENDING STATUS SOURCE 05/10/2018 Unknown E10.65 - Type 1 Effie Felix Active [place] diabetes mellitus DENTAL TECHNICIAN APPRENTICE-C [facility] with hyperglycemia Hospital / E10.65(ICD-10) Repository PROCEDURES PROCEDURES No Procedure Records FoundRESULTS RESULTS DISCHARGE SUMMARY Observed: 05/14/2018 Status: F Source: [place] 4:07 PM [facility] REPOSITORY [facility] Medical Records Department [address] [place] [address] Discharge Summary 05/14/18 1427 MR#: [id number] Acct: [id number] Name: MARCO SOLANO Rep #: [id number] : 1990 28 From: Jose SHOOK PCP: Mervin Short MD Status: DIS IN Y Location: [facility] [id number] <Jose Haas - Last Filed: 05/14/18 14:27> Discharge Date and Diagnosis Date of Admission: 05/13/18 Date of Discharge: 05/14/18 - Primary Discharge Diagnosis Acute hypoxic respiratory failure 2/2 interstitial pulmonary edema T1DM HTN - Secondary Discharge Diagnosis Chronic Problems (Last Reviewed 05/10/18 @ 08:20 by Letitia Canseco) HTN (hypertension) (Chronic) Hospital Course and Treatment Imaging Results: RAD/Chest PA and Lateral IMPRESSION: 1. Bilateral widespread interstitial edema or possibly infiltrates, worse on the right. 2. Patient age of 28 years and interstitial fibrosis is believed unlikely. CT/CTA Chest W/WO Contrast IMPRESSION: 1. Bilateral interstitial pulmonary edema with bilateral pleural effusions, small on the right and tiny on the left 2. No PE or aortic dissection. No pericardial effusion Individualized dose optimization techniques were used for this CT. Echo: Interpretation Summary The estimated ejection fraction is 65 %. Normal diastology for age. Trivial tricuspid valve insufficiency. Right ventricular systolic pressure estimated to be 27 mmHg. There is no comparison study available. Operations: None Procedures: 2-D Echocardiogram Summary of Care Provided: Hospital Course: The patient is a 28 year old M with pmhx of distant asthma, type 1 DM, HTN who presented to the ER with SOB and hypoxic at 79% on RA. He had diffuse interstitial edema on CXR and CTA chest. He was placed on oxygen, lasix and aerosols and admitted to the PCU. He was weaned off O2 quickly and responded rapidly to therapy. Echo was obtained without acute changes. He had no fever or leukocytosis during his stay. 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 Without fever or leukocytosis and with rapid response to non-abx therapy it was felt that fungal or bacterial etiology was unlikely. He may have had a viral interstitial process, or an asthma like issue. With his DMt1 and his improvement with lasix and aerosols steroids were deferred and he improved without them. He was stable at rest and with exertion ambulating around the unit. If at discharge he worsens he may benefit from steroids as an outpatient. He was provided an albuterol inhaler at me. He will need close follow up with his PCP and possible outpatient referral to pulmonology. He was discharged home in stable condition. Also of note lisinopril was increased while here 2/2 poorly controlled htn. This patient was seen by Jose Haas PA-C under the supervision of Doctor Michelle. [] - Physical Exam General: Alert, Oriented x3, Cooperative HEENT: Atraumatic, PERRLA, EOMI, Normocephalic Neck: Supple, No JVD, Negative Carotid Bruits Lungs: Rhonchi - left side only Cardiovascular: Regular rate, No murmurs Abdomen: Bowel Sounds Present, Soft, Non Tender Extremities: No edema, Capillary Refill Less than 3 Seconds Skin: No rashes, No breakdown Musculoskeletal: No Tenderness to Palpation of Joints or Extremities Neurological: Cranial nerves II-XII grossly intact Psych/Mental Status: Normal Affect, Appropriate Vital Signs Temp Pulse Resp BP Pulse Ox 98.4 F 72 14 135/78 H 95 05/14/18 10:29 05/14/18 10:29 05/14/18 10:29 05/14/18 10:29 05/14/18 10:29 Oxygen Flow Rate (L/min) 2 Oxygen Delivery Method Room Air Weight: 216 lb 4.375 oz Body Mass Index (BMI) 32.5 Intake and Output for Last 24 Hours Intake Total 840 / 840 240 / 240 Output Total 1475 / 1475 Balance -635 / -635 240 / 240 Microbiology Past 72 Hours 05/13/18 Unknown Respiratory Panel (PCR) - Final Mucosa - Nose Laboratory Tests Past 24 Hrs WBC 6.1 RBC 4.95 Hgb 13.6 Hct 41.2 MCV 83.2 MCH 27.5 MCHC 33.0 POC Glucose POC Glucose 295 H 142 H 192 H POC Glucose 265 H Discharge Diet: Low fat/ Low Cholesterol, 2000 Calorie Control Diet, 2000 mg Sodium Diet Discharge Activity: Return to Normal Activity Home Medications: Medications to take at Discharge insulin lispro (U- 100) 100 unit/mL subcutaneous solution See Rx Instructions SC .COMPLEX #30 ml 03/08/18 Insulin Glargine,Hum.rec.anlog [Lantus] 10 unit SQ QHS 05/13/18 Albuterol IH (ProAir) [Proair Hfa] 1 puff INHALATION Q6H PRN PRN #1 inhaler 05/14/18 Lisinopril [Prinivil] 5 mg PO DAILY #30 tablet 05/14/18 Following Prescrptions Were Given to Patient: Albuterol IH (ProAir) [Proair Hfa] 1 puff INHALATION Q6H PRN PRN #1 inhaler PRN Reason: Sob AND /Or Wheezing Lisinopril [Prinivil] 5 mg PO DAILY #30 tablet Primary Care Physician: Mervin Short MD [Primary Care Provider] - Please follow up with your Primary Care Physician in: 1 week Please Follow Up With: Mervin Short MD Disposition: Home Minutes spent on discharge:: 40 Patient Condition:: Stable Medical Necessity - Tobacco Use Smoking Status: Current some day smoker Tobacco Use: Chew Meaningful Use Info Meaningful Use Diagnoses (Choose all that apply): None applicable <Felipe Martinez - Last Filed: 05/14/18 16:06> Discharge Date and Diagnosis - Secondary Discharge Diagnosis Chronic Problems (Last Reviewed 05/10/18 @ 08:20 by Letitia Canseco) HTN (hypertension) (Chronic) Hospital Course and Treatment Summary of Care Provided: The patient is a 28 year old M [] - Physical Exam Vital Signs Temp Pulse Resp BP Pulse Ox 98.4 F 72 14 135/78 H 95 05/14/18 10:29 05/14/18 10:29 05/14/18 10:29 05/14/18 10:29 05/14/18 10:29 Oxygen Flow Rate (L/min) 2 Oxygen Delivery Method Room Air Weight: 216 lb 4.375 oz Body Mass Index (BMI) 32.5 Intake and Output for Last 24 Hours Intake Total 840 / 840 240 / 240 Output Total 1475 / 1475 Balance -635 / -635 240 / 240 Microbiology Past 72 Hours 05/13/18 Unknown Respiratory Panel (PCR) - Final Mucosa - Nose Laboratory Tests Past 24 Hrs WBC 6.1 RBC 4.95 Hgb 13.6 Hct 41.2 MCV 83.2 MCH 27.5 MCHC 33.0 POC Glucose POC Glucose 295 H 142 H 192 H POC Glucose 265 H Code Visit Addendum: Dr. Martinez I personally examined the patient and reviewed the chart. I agree with the above. 28-year-old male presenting with acute hypoxic respiratory failure with oxygen saturation of 79% on room air, he states that he had been baling hay and had been inhaling particles without wearing a respirator. After a dose of Lasix in the ER he recovered very quickly, and an echo was performed which was normal. He continued to do well over the course of the next day and on the day of discharge he was ambulatory and breathing okay and the CT scan had demonstrated the ground groundglass opacities without signs of consolidation therefore he was discharged home on an albuterol inhaler, and the direction to see his primary care physician as an outpatient. He continues to have shortness of breath the recommendation would be to see pulmonology for PFTs. Also given that he is a type I diabetic and was slightly hypertensive here into the 130s he was discharged on lisinopril 5 mg. He will need outpatient follow- up for another BMP in approximately 1-2 weeks. Inpatient E AND M: [id number] Disch Hosp 05/14/18 1443 <Electronically signed by Jose SHOOK> Date Jose SHOOK 05/14/18 1607<Electronically signed by Felipe Martinez MD> Cosigner Signature (if applicable): Date Felipe Martinez MD CC: BOUCHRA Haas; Felipe Martinez MD; Mervin Short MD Signed 12 LEAD ELECTROCARDIOGRAM Observed: 05/14/2018 Status: F Source: [place] 2:29 PM [facility] REPOSITORY [facility] Cardiovascular Services [address] [place] [address] 12 Lead EKG 05/13/18 0316 MR#: [id number] Acct: [id number] Name: MARCO SOLANO Rep #: [id number] : 1990 28 From: Zach Sebastian MD Attending Dr: Felipe Martinez MD Status: DIS IN Ordering Dr: Felipe Leung MD Date: 05/13/18 Location: [facility] Sex: M C Admitted: 05/13/18 Test Reason : SOB Blood Pressure : / mmHG Vent. Rate : 081 BPM Atrial Rate : 081 BPM P-R Int : 150 ms QRS Dur : 082 ms QT Int : 360 ms P-R-T Axes : 056 019 041 degrees QTc Int : 418 ms Normal sinus rhythm Normal ECG Confirmed by JUANITO BRISENO, ZACH ([id number]), web content editor BETO BROWN ([id number]) on 05/14/2018 2:29:20 PM Referred By: Effie Felix Confirmed By:ZACH SEBASTIAN MD 05/14/18 1429 Date Zach Sebastian MD CC: Felipe Martinez MD; Felipe Leung MD; Mervin Short MD Signed DISCHARGE INSTRUCTION Observed: 05/14/2018 Status: F Source: [place] 11:20 AM [facility] REPOSITORY [facility] Medical Records Department [address] [place] [address] Instructions for Home/Discharge Instructions 05/14/18 1117 MR#: [id number] Acct: [id number] Name: MARCO SOLANO Rep #: [id number] : 1990 28 From: Jose SHOOK PCP: Mervin Short MD Status: ADM IN - Discharge Diagnoses Current Active Problems: Current Active and Chronic Problems (Last Reviewed 05/10/18 @ 08:20 by Letitia Canseco) Acute hypoxemic respiratory failure (Acute) HTN (hypertension) (Chronic) You will use the following diet at home:: Calorie/Carbohydrate Controlled (specify 1200, 1400, etc) - 2000 angela/day, Cardiac Your food should be the consistency of: Regular Your liquids should be the consistency of: Regular/Thin Discharge Activity: Return to Normal Activity Allergies/Adverse Reactions: Allergies No Known Allergies Allergy (Verified 05/13/18 03:06) Medications to take at Discharge insulin lispro (U- 100) 100 unit/mL subcutaneous solution See Rx Instructions SC .COMPLEX #30 ml 03/08/18 Insulin Glargine,Hum.rec.anlog [Lantus] 10 unit SQ QHS 05/13/18 Albuterol IH (ProAir) [Proair Hfa] 1 puff INHALATION Q6H PRN PRN #1 inhaler 05/14/18 Lisinopril [Prinivil] 5 mg PO DAILY #30 tablet 05/14/18 The following prescriptions were given: Albuterol IH (ProAir) [Proair Hfa] 1 puff INHALATION Q6H PRN PRN #1 inhaler PRN Reason: Sob AND /Or Wheezing Lisinopril [Prinivil] 5 mg PO DAILY #30 tablet Primary Care Physician: Mervin Short MD [Primary Care Provider] - Please follow up with your Primary Care Physician in: 1 week Test Results: Test results from this visit will be discussed in further detail at your follow-up appointment, if applicable. 05/14/18 1120 <Electronically signed by Jose SHOOK> Date Jose SHOOK CC: Mervin Short MD BEDSIDE GLUCOSE Collected: 05/14/2018 Status: F Source: [place] 6:15 AM [facility] REPOSITORY TYPE CODE TESTS RESULT OUT OF REFERENCE UNITS RANGE LAB L501.080 70-110 mg/dL High BEDSIDE GLU 295 Result Comment: MANAGEMENT OF PATIENT CARE PER NURSING PROTOCOL Performed By: #### L501.080 #### [facility] Laboratory Point of Care [facility] [place], [place] [address] CBC W/DIFF, AUTOMATED Collected: 05/14/2018 Status: F Source: [place] 5:45 AM [facility] REPOSITORY TYPE CODE TESTS RESULT OUT OF RANGE REFERENCE UNITS LAB L100.1000 4.4-11.0 K/mm3 Normal WBC 6.1 LAB L100.1200 4.6-6.2 M/mm3 Normal RBC 4.95 LAB L100.1300 13.0-16.5 g/dl Normal HGB 13.6 LAB L100.1400 40-54 % Normal HCT 41.2 LAB L100.1500 80-94 fL Normal MCV 83.2 LAB L100.1600 27.0-32.0 pg Normal MCH 27.5 LAB L100.1700 32-36 g/gl Normal MCHC 33.0 LAB L100.1810 11.6-14.6 % Normal RDW CV 13.7 LAB L100.1820 35.1-43.9 fl Normal RDW SD 41.2 LAB L100.1900 150-450 K/mm3 Normal PLT 244 LAB L100.2000 6.2-12.0 fl Normal MPV 10.0 LAB L100.2100 47-70 % Normal NEUT% 63.6 LAB L100.2200 19-41 % Normal LY% 25.2 LAB L100.2300 0-10 % Normal MONO% 7.9 LAB L100.2400 0-5 % Normal EO% 2.8 LAB L100.2500 0-1 % Normal BASO% 0.3 LAB L100.2550 0.0-0.9 % Normal IM GRAN % 0.200 Result Comment: IG% - Immature Granulocytes (promyelocytes, myelocytes and metamyelocytes) > 1% indicates that a LEFT SHIFT is Present. LAB L100.2620 2.0-7.7 X10 3/uL Normal Absolute Neut 3.9 LAB L100.2720 0.83-4.51 X10 3/ul Normal Absolute Lymph 1.54 Performed By: #### L100.0100 #### [facility] [address] [place], [address] BASIC METABOLIC Collected: 05/14/2018 Status: F Source: [place] PROFILE (BMP) 5:45 AM [facility] REPOSITORY TYPE CODE TESTS RESULT OUT OF RANGE REFERENCE UNITS LAB L501.0100 74-106 mg/dL High GLU 250 Result Comment: Glucose result greater than or equal to 200 mg/dL suggests DIABETES MELLITUS per A.D.A. criteria. Please note revised GLUCOSE reference range effective 2017. LAB L501.1000 7-18 mg/dL Normal BUN 9 LAB L501.1100 0.70-1.30 mg/dL Normal CREAT,SERUM 0.70 Result Comment: The validity of the calculated GFR AND GFRAA in patients over 70 years has not been determined. Clinical correlation is essential. LAB L501.1110 >60 mL/min Normal EST GFR 143 Result Comment: Non- GFR Calc LAB L501.1115 >60 mL/min Normal EST GFR - AA 173 Result Comment: GFR Calc LAB L501.1255 ml/min Normal Estimated CRCL 158.51 LAB L501.1300 10-20 RATIO BUN/CRE Normal 12.8 LAB L501.2200 8.5-10 mg/dL Low .1 CA 8.1 LAB L501.5300 136-14 mmol/L 5 NA Normal 143 LAB L501.5600 3.5-5. mmol/L 1 K Normal 3.5 LAB L501.5900 98-107 mmol/L CL Normal 106 LAB L501.6100 21.0-3 mmol/L 2.0 CO2 Normal 30.0 LAB L501.6200 5-15 GAP Normal 7 Performed By: #### L500.2500 #### [facility] [address] [place], [address] BEDSIDE GLUCOSE Collected: 05/13/2018 Status: F Source: [place] 9:08 PM [facility] REPOSITORY TYPE CODE TESTS RESULT OUT OF REFERENCE UNITS RANGE LAB L501.080 70-110 mg/dL High BEDSIDE GLU 142 Result Comment: MANAGEMENT OF PATIENT CARE PER NURSING PROTOCOL Performed By: #### L501.080 #### [facility] Laboratory Point of Care [address] [place] [place] [address] BEDSIDE GLUCOSE Collected: 05/13/2018 Status: F Source: [place] 6:23 PM [facility] REPOSITORY TYPE CODE TESTS RESULT OUT OF REFERENCE UNITS RANGE LAB L501.080 70-110 mg/dL High BEDSIDE GLU 192 Result Comment: MANAGEMENT OF PATIENT CARE PER NURSING PROTOCOL Performed By: #### L501.080 #### [facility] Laboratory Point of Care [address] [place] [place] [address] BEDSIDE GLUCOSE Collected: 05/13/2018 Status: F Source: [place] 4:08 PM [facility] REPOSITORY TYPE CODE TESTS RESULT OUT OF REFERENCE UNITS RANGE LAB L501.080 70-110 mg/dL High BEDSIDE GLU 265 Result Comment: MANAGEMENT OF PATIENT CARE PER NURSING PROTOCOL Performed By: #### L501.080 #### [facility] Laboratory Point of Care [address] [place] [address] ECHOCARDIOGRAM COMPLETE Observed: 05/13/2018 Status: F Source: [place] 12:17 PM [facility] REPOSITORY [facility] Cardiovascular Services [address] [facility] [place] [address] Echo Complete 05/13/18 0809 MR#: [id number] Acct: [id number] Name: MARCO SOLANO Rep #: [id number] : 1990 28 From: Rene Rodriguez MD Attending Dr: Felipe Martinez MD Status: ADM IN Ordering Dr: Prasanna Berrios MD Date: 05/13/18 Location: [facility] Sex: M C Admitted: 05/13/18 Reason For Study: DYSPNEA/SOB Procedure This was a 2D Doppler, Color Flow transthoracic echocardiogram. Exam performed portable in patient room. Left Ventricle Normal size and thickness. The estimated ejection fraction is 65 %. Normal diastology for age. No regional wall motion abnormalities noted. Right Ventricle Normal size and thickness. Normal systolic function. Atria Normal left atrium. Normal right atrium. Normal atrial septum. Mitral Valve The mitral valve is structurally normal. No prolapse or stenosis seen. Tricuspid Valve Normal tricuspid valve. Trivial tricuspid valve insufficiency. Right ventricular systolic pressure estimated to be 27 mmHg. Aortic Valve Normal aortic valve. Trisinus/trileaflet aortic valve. Pulmonic Valve Normal pulmonic valve. Great Vessels Normal aortic root. Normal arch. Normal inferior vena cava. Inferior vena cava collapse with sniff. Pericardium/Pleural No pericardial effusion. MMode/2D Measurements AND Calculations LVIDd: 5.2 cm IVSd: 0.98 cm Ao root diam: 2.6 cm LVIDs: 3.1 cm LVPWd: 1.0 cm RVDd: 3.2 cm FS: 40.4 % LAV(MOD-bp): 67.3 ml LA A4 area: 20.9 cm2 LA dimension(2D): 4.4 cm LAV(MOD-bp) Indexed: 30.5 ml/m2 LAV(MOD-sp2): 69.6 ml LAV(MOD-sp4): 65.0 ml RA A4 area: 16.7 cm2 Time Measurements MV dec time: 0.18 sec Doppler Measurements AND Calculations MV E max gunnar: 141.2 cm/sec Lat Peak E' Gunnar: 15.8 cm/sec Med Peak E' Gunnar: 13.1 cm/sec MV A max gunnar: 98.2 cm/sec E/E' lat: 8.9 E/E' med: 10.8 MV E/A: 1.4 LV V1 max: 120.8 cm/sec PA V2 max: 147.1 cm/sec TR max gunnar: 235.4 cm/sec LV V1 max P.8 mmHg TR max P.2 mmHg Interpretation Summary The estimated ejection fraction is 65 %. Normal diastology for age. Trivial tricuspid valve insufficiency. Right ventricular systolic pressure estimated to be 27 mmHg. There is no comparison study available. Ordering Physician: Prasanna Berrios Referring Physician: Mervin Short Performed By: Maddy Saldaña, SHYAMCS, RVT 05/13/181216 Date Rene Rodriguez MD CC: Prasanna Berrios MD; Felipe Martinez MD; Mervin Short MD Date Dictated: 05/13/1809 Date Transcribed: 11/29/18 1217 [employer]: Signed BEDSIDE GLUCOSE Collected: 05/13/2018 Status: F Source: [place] 11:19 AM [facility] REPOSITORY TYPE CODE TESTS RESULT OUT OF REFERENCE UNITS RANGE LAB L501.080 70-110 mg/dL High BEDSIDE GLU 190 Result Comment: MANAGEMENT OF PATIENT CARE PER NURSING PROTOCOL Performed By: #### L501.080 #### [facility] Laboratory Point of Care [address] [place] [address] TROPONIN-I Collected: 05/13/2018 Status: F Source: [place] 9:20 AM [facility] REPOSITORY Order Comment: 'TROP' Serial specimen #1, #2 or #3: 3 TYPE CODE TESTS RESULT OUT OF RANGE REFERENCE UNITS LAB L501.4010 <0.045 ng/mL Normal < 0.015 TROPONIN-I Result Comment: TROPONIN-I EXPECTED VALUES <0.045 Negative 0.045 - 0.590 Consistent with Cardiac Damage > OR = 0.600 Critical Value Not every elevated troponin is indicative of IN. These values should be used with clinical judgement in examining the patient's clinical picture for diagnosis. To establish a diagnosis of IN versus myocardial injury, there must be a demonstrated rise and/or fall in the troponin values, in addition to ischemic symptoms, EKG changes, new regional wall motion abnormality, and/or angiographical evidence. PLEASE NOTE: REFERENCE RANGES EDITED 17 Performed By: #### L501.4010 #### [facility] [address] [place], [address] HISTORY AND PHYSICAL Observed: 05/13/2018 Status: F Source: [place] EXAM 8:56 AM [facility] REPOSITORY [facility] Medical Records Department [address] [place] [address] History and Physical 05/13/18 0454 MR#: [id number] Acct: [id number] Name: MARCO SOLANO Rep #: [id number] : 1990 28 From: Prasanna Berrios MD PCP: Mervin Short MD Status: ADM IN Location: [place] [address] ADDENDUM by Prasanna Berrios MD on 05/13/18 at 0856 Code Visit With bilateral pleural effusion it is probable that interstitial infiltrate is fluid. 05/13/18 0856 <Electronically signed by Prasanna Berrios MD> Date Prasanna Berrios MD cc: Prasanna Berrios MD; Mervin Short MD * Signed ADDENDUM by Prasanna Berrios MD on 05/13/18 at 0717 Code Visit Other differential diagnosis includes myocarditis. 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 His symptoms started overnight and he was unable to sleep because of shortness of breath. Even with sleeping in a chair position he was still unable to sleep. His shortness of breath is at rest and it increases on exertion. Further patient reported that earlier in the day before his symptoms started he had chest tightness. He reports some mild rhinorrhea not different from baseline. He denies coughing. He denies any fever or chills. At first patient denied any exposure to respiratory stimulants. However upon further thoughts he reported that about 5 days prior to his symptoms he was exposed to mold from a bail of corn stalks. He reports that the bail had extensive mold on it. At the emergency departments his oxygen saturation was 79% on room air. Chest x-ray showed diffused ground ground opacity worse on the right. CTA of the chest shows diffuse pulmonary infiltrates and small pleural effusion was on the right side. BNP was unremarkable. At emergency department patient received DuoNeb; aspirin; Lasix and was placed on oxygen by nasal cannula. Past Medical History Past Medical History (Chronic Problems): Chronic Problems (Last Reviewed 05/10/18 @ 08:20 by Letitia Canseco) HTN (hypertension) (Chronic) Medical History: Medical History (Last Reviewed 05/10/18 @ 08:20 by Letitia Canseco) Chronic headaches R51 Diabetes mellitus type 1 E10.9 Dx : age 13 last exacerbation : dka : 2006 hypoglycemic episode : never er visit : 2006 Allergies No Known Allergies Allergy (Verified 05/13/18 03:06) Home Medications: Ambulatory Orders Medication Instructions Recorded insulin glargine (U- 100) 100 30 unit SC QDAY #10 ml 03/08/18 Surgical History: Surgical History (Last Reviewed 05/13/18 @ 06:56 by Prasanna Berrios MD) H/O oral surgery Z98.890 Lives: Alone Smoking Status: Current some day smoker Tobacco Use: Chew Alcohol: None - *Family History Maternal Family History: Family History (Last Reviewed 05/13/18 @ 07:00 by Prasanna Berrios MD) Mother Diabetes CKD (chronic kidney disease) Paternal Family History: Family History (Last Reviewed 05/13/18 @ 07:00 by Prasanna Berrios MD) Mother Diabetes CKD (chronic kidney disease) Review of Systems Constitutional: Denies: Chills, Fever, Weight Change HEENT: Denies: Head Aches, Sinus Congestion, Sinus Drainage Cardiovascular: Reports: Chest Pain. Denies: Palpitations Respiratory: Reports: Shortness of Breath, Shortness of breath at rest, Shortness of breath upon exertion. Denies: Hemoptysis, Sputum production Gastrointestinal: Denies: Abdominal Pain, Nausea, Vomiting Genitourinary: Denies: Dysuria Musculoskeletal: Denies: Joint Pain, Joint Tenderness Skin: Denies: Rash, Wounds Neurological: Denies: Numbness, Tingling, Focal weakness Psychiatric: Denies: Anxiety, Depression, Homicidal Ideations, Suicidal Ideations Hematologic/ Lymphatic: Denies: Easy Bruising, Easy Bleeding VTE Information - Inpt Only VTE Present on Admission: No VTE Mechan Device Prophylaxis: SCD's VTE Pharm Prophylaxis ordered?: No Patient Problems: Active and Suspected Problems (Last Reviewed 05/10/18 @ 08:20 by Letitia Canseco) Acute hypoxemic respiratory failure (Acute) - Physical Exam General: Alert, Oriented x3, Cooperative HEENT: Atraumatic, PERRLA, EOMI, Normocephalic Neck: Supple, No JVD, Negative Carotid Bruits Lungs: Normal air movement, Rales - fine scatterred diffuse rales. Cardiovascular: Regular rate, No murmurs Abdomen: Bowel Sounds Present, Soft, Non Tender Extremities: No edema, Capillary Refill Less than 3 Seconds Skin: No rashes, No breakdown Musculoskeletal: No Tenderness to Palpation of Joints or Extremities Neurological: Facial Droop Psych/Mental Status: Normal Affect, Appropriate Vital Signs Temp Pulse Resp BP Pulse Ox 98.8 F 71 31 H 157/71 H 95 05/13/18 03:03 05/13/18 04:12 05/13/18 04:12 05/13/18 04:12 05/13/18 04:12 Oxygen Flow Rate (L/min) 2 Oxygen Delivery Method Nasal Cannula Weight: 106.4 kg Body Mass Index (BMI) 34.6 Laboratory Tests Past 24 Hrs Assessment/Plan All Active Problems (Last Reviewed 05/10/18 @ 08:20 by Letitia Canseco) Acute hypoxemic respiratory failure (Acute) Diabetes type 1, uncontrolled (Acute) 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 Acute hypoxemic respiratory failure. Patient with radiographic evidence of ground glass opacity; normal BNP and young age. Differential diagnosis include Hypersensitivity pneumonitis from exposure of mold; other interstitial lung disease and Heart failure. Patient has had multiple urination after Lasix administration. Patient has noticed considerable improvements in SOB after administration of IV Lasix and breathing treatments which is not surprising since Lasix will definitely pool some fluid from his lungs and improve his breathing. We will hold off further Lasix at this time We will get an echocardiogram; respiratory pathogen panel and TSH. 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 His cardiac enzymes on presentation was unremarkable. Due to chest tightness he received aspirin for 324 mg at emergency department. Will trend troponin at this time. Hypokalemia On admission potassium was 3.4. In view of patient having received Lasix and on scheduled albuterol it is likely that his potassium level will go down even further. Potassium Chloride 40 meq PO X1 ordered BMP in am of next day. Hypertension Patient stated that on his last visit with Jac Felix CNP with endocrinology group, Lisinopril 2.5mg was prescribed for slightly elevated blood pressure and for its nephro protective effects for this patient with diabetes. Patient is yet to start taking Lisinopril which has already been prescribed. On admission here his blood pressure is severely elevated with systolic of 170 confirming likely essential hypertension. Because of his respiratory distress will not start lisinopril which if with allergy may confound symptoms. As needed hydralazine ordered for now. As needed labetalol ordered because of respiratory symptoms. Diabetes mellitus On admission his blood glucose was within goal. Patient reported that at night he takes Lantus 10 units. And for each 10 g of carbohydrate he takes 1 unit of short acting insulin. While inpatient we will adjust his long-acting insulin to 8 units nightly; and put him on medium dose correction scale. Adjust blood glucose regimen as necessary. History of Asthma Last asthma attack was 15 years ago. Patient with radiographic evidence of opacities in his lungs that points away from asthma. DVT prophylaxis Low risk SCD ordered. Encouraged to ambulate. Code Visit Inpatient E AND M: [id number] Init Hosp L3 05/13/18 0714 <Electronically signed by Prasanna Berrios MD> Date Prasanna Berrios MD Cosign Signature: Date (if applicable) CC: Prasanna Berrios MD; Mervin Short MD Signed EMERGENCY DEPARTMENT Observed: 05/13/2018 Status: F Source: [place] SUMMARY [facility] AM [facility] Medical Records Department [address] [place] [address] Emergency Department Summary 05/13/18 0319 MR#: [id number] Acct: [id number] Name: MARCO SOLANO Rep #: [id number] : 1990 28 From: Felipe Leung MD PCP: Mervin Short MD Status: ADM IN - ER Visit Summary Date of Service: 05/13/18 Chief Complaint: [] Shortness of breath History of Present Illness: The patient is a 28 M shortness of breath for the last 7 hours at rest continuous worse with exertion. No cough. He has had some chest tightness all day yesterday. Located in the center. It is mild. He thinks is from his breathing however. Blood sugars have been under control. He has asthma as a child but nothing recently. No DVT or PE risk factors. Cardiac risk factors only diabetes. No aortic dissection risk factors Physical Examination: Vital signs reviewed General: Well-nourished well-developed Head: Normocephalic atraumatic Eyes: Pupils equal round and reactive to light extraocular movements intact ENT: TMs clear no hemotympanum no trauma Neck: Nontender full range of motion Cardiovascular: Regular rate rhythm no murmurs normal S1-S2 Respiratory: crackles all lung watson bilaterally chest nontender Abdomen: Soft nontender nondistended normal bowel sounds no masses Back: Nontender no CVA tenderness Extremities: Nontender active range of motion 4 extremities no trauma Skin: Normal color no trauma Neuro alert oriented cranial nerves II through XII intact normal strength sensation reflexes Test Results: [] Emergency Department Course and Treatment: [] EKG shows sinus rhythm at 81. T wave inversion in V2. Otherwise nothing acute. No acute ischemia. Patient given 1 breathing treatment. Lab work and chest x-ray obtained. Sleep breathing treatment helped somewhat. Placed on nasal cannula oxygen with good sats into the upper 90s. Given aspirin to protect his heart and 1 dose of Lasix IV 40 mg. He had 2 episodes urination after that and felt better. CBC normal. Chemistries normal except potassium 3.4. BNP is 77. Troponin is negative. Chest x-ray shows bilateral pulmonary edema, CTA of the chest shows bilateral pulmonary edema without PE or other abnormality. Patient has noncardiogenic pulmonary edema in my opinion. His B natruretic peptide is 77. He has no history of coronary artery disease. Perhaps this is a myocarditis. Patient has no infectious ideologies. He was discussed with the hospitalist and will be admitted. He is diuresing well on Lasix. Further testing will have to be done as an inpatient Treatment Plan: [] Disposition: [] Impression: [] Hypoxic respiratory failure Bilateral pulmonary edema Bilateral pleural effusions Critical CARE time: 74 minutes This note was generated with Casero dictation software. It may contain incorrect words, spelling, and punctuation that were not noted in review of the chart prior to signing ED Disposition - Plan for ED Patient: Chief Complaint: Shortness of Breath Referrals: Mervin Short MD [Primary Care Provider] - What to do if you have Problems For any increased pain, shortness of breath, bleeding, nausea or vomiting, chest pain, or any unexpected problems, contact your Primary Care Provider. Call [facility] ([phone]) or report to the closest Emergency Room. Call 911 if necessary. 05/13/18 0713 <Electronically signed by Felipe Leung MD> Date Felipe Leung MD Cosigner Signature (If Indicated): Date CC: Mervin Short MD ALBUMIN, SERUM Collected: 05/13/2018 Status: F Source: [place] 6:56 AM [facility] REPOSITORY Order Comment: Comments: add to specimen in the lab TYPE CODE TESTS RESULT OUT OF RANGE REFERENCE UNITS LAB L501.1800 3.2-5.0 g/dL Normal ALB 3.3 Performed By: #### L501.1800 #### [facility] [address] [place], [address] THYROID STIM HORMONE Collected: 05/13/2018 Status: F Source: [place] (TSH) 6:56 AM [facility] REPOSITORY TYPE CODE TESTS RESULT OUT OF RANGE REFERENCE UNITS LAB L501.9520 0.358-3.74 uIU/mL Normal TSH 2.00 Performed By: #### L501.9520 #### [facility] [address] [place], [address] BEDSIDE GLUCOSE Collected: 05/13/2018 Status: F Source: [place] 6:52 AM [facility] REPOSITORY TYPE CODE TESTS RESULT OUT OF REFERENCE UNITS RANGE LAB L501.080 70-110 mg/dL High BEDSIDE GLU 226 Result Comment: MANAGEMENT OF PATIENT CARE PER NURSING PROTOCOL Performed By: #### L501.080 #### [facility] Point of Care [address] [place] [address] CTA CHEST W/WO Observed: 05/13/2018 Status: F Source: [place] CONTRAST 3:52 AM [facility] REPOSITORY [facility] Imaging Services [address] [facility] [place] [address] CTA Chest W/WO Contrast MR#: [id number] Acct: [id number] Name: MARCO SOLANO Rep #: [id number] : 1990 M 28 From: Polo Leon MD PCP: Mervin Short MD Status: REG ER Study: CTA Chest W/WO Contrast Date of Exam: 05/13/18 Exam# [id number] Ordering Dr: Felipe Leung MD HISTORY: sudden onset sob last evening, chest tightness, 79% on ra, hx diab-takes insulin, TECHNIQUE: Helically acquired images were obtained of the chest following IV contrast as per pulmonary angiogram protocol with 3D reconstructions. A radiation dose optimization technique was used for this scan. IV Contrast dosage and agent: 100 cc Isovue 370 contrast COMPARISON: None FINDINGS: PULMONARY ARTERIES: Normal in caliber. No pulmonary embolism. AORTA AND GREAT VESSELS: Normal in caliber. No evidence of dissection. HEART AND PERICARDIUM: Heart size is normal. There is no pericardial effusion. Bilateral interstitial pulmonary edema with fissural thickening. Small right and tiny left pleural effusions. No pulmonary consolidation. No pneumothorax. CT/CTA Chest W/WO Contrast IMPRESSION: 1. Bilateral interstitial pulmonary edema with bilateral pleural effusions, small on the right and tiny on the left 2. No PE or aortic dissection. No pericardial effusion Individualized dose optimization techniques were used for this CT. at 0441 Reported and signed by: Polo Leon MD Electronically Signed: Polo Leon, at 4:38 EST Tel , Service support , CC: Felipe Leung MD; Mervin Short MD [employer]: Signed CBC W/DIFF, AUTOMATED Collected: 05/13/2018 Status: F Source: [place] 3:26 AM [facility] REPOSITORY TYPE CODE TESTS RESULT OUT OF RANGE REFERENCE UNITS LAB L100.1000 4.4-11.0 K/mm3 Normal WBC 7.4 LAB L100.1200 4.6-6.2 M/mm3 Normal RBC 4.89 LAB L100.1300 13.0-16.5 g/dl Normal HGB 13.5 LAB L100.1400 40-54 % Normal HCT 40.1 LAB L100.1500 80-94 fL Normal MCV 82.0 LAB L100.1600 27.0-32.0 pg Normal MCH 27.6 LAB L100.1700 32-36 g/gl Normal MCHC 33.7 LAB L100.1810 11.6-14.6 % Normal RDW CV 13.5 LAB L100.1820 35.1-43.9 fl Normal RDW SD 39.8 LAB L100.1900 150-450 K/mm3 Normal PLT 233 LAB L100.2000 6.2-12.0 fl Normal MPV 9.4 LAB L100.2100 47-70 % Normal NEUT% 69.4 LAB L100.2200 19-41 % Normal LY% 23.0 LAB L100.2300 0-10 % Normal MONO% 6.1 LAB L100.2400 0-5 % Normal EO% 1.1 LAB L100.2500 0-1 % Normal BASO% 0.3 LAB L100.2550 0.0-0.9 % Normal IM GRAN % 0.100 Result Comment: IG% - Immature Granulocytes (promyelocytes, myelocytes and metamyelocytes) > 1% indicates that a LEFT SHIFT is Present. LAB L100.2620 2.0-7.7 X10 3/uL Normal Absolute Neut 5.1 LAB L100.2720 0.83-4.51 X10 3/ul Normal Absolute Lymph 1.70 Performed By: #### L100.0100 #### [facility] [address] [facility] [place], [address] BASIC METABOLIC Collected: 05/13/2018 Status: F Source: [place] PROFILE (BMP) 3:26 AM [facility] REPOSITORY TYPE CODE TESTS RESULT OUT OF RANGE REFERENCE UNITS LAB L501.0100 74-106 mg/dL High GLU 142 Result Comment: Fasting Glucose result greater than or equal to 126 mg/dL suggests DIABETES MELLITUS per A.D.A. criteria. Please note revised GLUCOSE reference range effective 2017. LAB L501.1000 7-18 mg/dL Normal BUN 10 LAB L501.1100 0.70-1.30 mg/dL Normal CREAT,SERUM 0.77 Result Comment: The validity of the calculated GFR AND GFRAA in patients over 70 years has not been determined. Clinical correlation is essential. LAB L501.1110 >60 mL/min Normal EST GFR 129 Result Comment: Non- GFR Calc LAB L501.1115 >60 mL/min Normal EST GFR - AA 156 Result Comment: GFR Calc LAB L501.1255 ml/min Normal Estimated CRCL 144.10 LAB L501.1300 10-20 RATIO BUN/CRE Normal 13.0 LAB L501.2200 8.5-10 mg/dL Low .1 CA 8.0 LAB L501.5300 136-14 mmol/L 5 NA Normal 143 LAB L501.5600 3.5-5. mmol/L Low 1 K 3.4 LAB L501.5900 98-107 mmol/L CL Normal 107 LAB L501.6100 21.0-3 mmol/L 2.0 CO2 Normal 29.0 LAB L501.6200 5-15 GAP Normal 7 Performed By: #### L500.2500, L501.4010 #### [facility] [address] [facility] [place], [place], [address] TROPONIN-I Collected: 05/13/2018 Status: F Source: [place] 3:26 AM [facility] REPOSITORY TYPE CODE TESTS RESULT OUT OF RANGE REFERENCE UNITS LAB L501.4010 <0.045 ng/mL Normal < 0.015 TROPONIN-I Result Comment: TROPONIN-I EXPECTED VALUES <0.045 Negative 0.045 - 0.590 Consistent with Cardiac Damage > OR = 0.600 Critical Value Not every elevated troponin is indicative of IN. These values should be used with clinical judgement in examining the patient's clinical picture for diagnosis. To establish a diagnosis of IN versus myocardial injury, there must be a demonstrated rise and/or fall in the troponin values, in addition to ischemic symptoms, EKG changes, new regional wall motion abnormality, and/or angiographical evidence. PLEASE NOTE: REFERENCE RANGES EDITED 17 Performed By: #### L500.2500, L501.4010 #### [facility] [address] [place], [address] BNP,B-TYPE NATRIURETIC Collected: 05/13/2018 Status: F Source: [place] PEPTIDE 3:26 AM [facility] REPOSITORY TYPE CODE TESTS RESULT OUT OF RANGE REFERENCE UNITS LAB L503.6620 0-100 pg/mL Normal B-TYPE 77.0 SHIRLEY PEP Performed By: #### L503.6620 #### [facility] [address] [place], [address] CHEST PA AND LATERAL Observed: 05/13/2018 Status: F Source: [place] 3:19 AM [facility] REPOSITORY [facility] Imaging Services [address] [facility] [place] [address] Chest PA and Lateral MR#: [id number] Acct: [id number] Name: MARCO SOLANO Rep #: [id number] : 1990 M 28 From: Polo Leon MD PCP: Mervin Short MD Status: REG ER Study: Chest PA and Lateral Date of Exam: 05/13/18 Exam# [id number] Ordering Dr: Felipe Leung MD HISTORY: sob, chest tightntess. 79% on room air upon arrival EXAM: XR Chest 2 Views: COMPARISON: None FINDINGS: EKG leads. Normal heart size. Nonspecific bilateral interstitial opacity, worse on the right, representing edema or possibly infiltrates. Fissural thickening is present and this favors edema. No pleural effusion. No pneumothorax. The bony thorax appears intact. RAD/Chest PA and Lateral IMPRESSION: 1. Bilateral widespread interstitial edema or possibly infiltrates, worse on the right. 2. Patient age of 28 years and interstitial fibrosis is believed unlikely. at 0404 Reported and signed by: Polo Leon MD Electronically Signed: Polo Leon, at 4:01 EST Tel , Service support , CC: Felipe Leung MD; Mervin Short MD [employer]: Signed Observed: 05/13/2018 Status: F Source: [place] RESPIRATORY PANEL 12:00 AM [facility] REPOSITORY Order Date: 05/13/18 Has pt arrived? Y RP PANEL ADENOVIRUS Not Detected HUMAN METAPHNEUMO Not Detected INFLUENZA A Not Detected INFLUENZA A (SUBTYPE H1) Not Detected INFLUENZA A (SUBTYPE H3) Not Detected INFLUENZA B Not Detected PARAINFLUENZA 1 Not Detected PARAINFLUENZA 2 Not Detected PARAINFLUENZA 3 Not Detected PARAINFLUENZA 4 Not Detected RHINOVIRUS Not Detected RSV A Not Detected RSV B Not Detected NAAT METHOD Testing was performed using nucleic acid amplification Performed By: #### M100.638 #### [facility] [address] [facility] [place], [place], [address] ENDOCRINOLOGY VISIT Observed: 05/10/2018 Status: F Source: [place] REPORT 12:57 PM [facility] REPOSITORY [facility] [address] [place] [address] OFFICE VISIT Date of Service: 05/10/18 MR#: [id number] Acct: [id number] Name: MARCO SOLANO Rep #: [id number] : 1990 Provider: Effie Felix NP Age/Sex: 28/M Location: [facility] Status: Signed HPI History of present illness History of present illness Marco Solano is a 28 year old male pt of Dr. Short who presents for follow of diabetes type 1. Diagnosed at age 13. He continues on MDI. Pt denies difficulty with injections or self monitoring of BG. Denies any signs of irritation or infection at of injections. Is taking the insulin as directed. Patient continues on lantus 10 units daily and meal insulin 1 per 7.5 ratio at breakfast and 1-10 remainder of day. Correction 1-50. Did bring his meter today but feels he is doing fairly well. 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 Reports BG readings 100-high 100's for the most part. Appetite good, sleep good. No issues with bowel or bladder. No foot issues. No ER visits. Since our last visit he denies excessive thirst or increased frequency of urination, chest pain or dyspnea, numbness,tingling, or pain in extremities, new or unusual visual symptoms. Has had occ low blood sugars. Dog awakens him in the night if this occurs. Follows a diabetic diet. Is compliant with medication and is tolerating without side effects. At time of visit -Pt denies symptoms of hypertensive emergency (CP,SOB,BROOKE< blurred vision) and hypotension(dizziness, lightheadedness) - Pt denies symptoms of hypoglcemia( sweaty, confusion, anxiety, tremor, hunger, palpitations) and hyperglycemia (polydipsia, polyuria) -Pt denies potential medication adverse effects (cough,myalgia, edema). HYPOGLYCEMIA Aware of hypoglycemia: yes Able to self treat hypoglycemia : yes Frequent low BG readings: No Has supply of glucagon: yes SMBG Checks BG 4-6 times daily Uses express scripts 90 day supply. Having low BG at night on occasion with rebound high in the am. BG average 180 per meter average. Exercise: exceeds 150 minutes weekly Is not sure when last eye exam done; will check I have reviewed vital signs, allergies, current medications, l PMH, SH, FH, No medical records available at time of visit. Exam Const General: comfortable, well groomed Nutritional Appearance: well nourished Orientation: oriented x3 HENMT Head: normal to inspection Ears: hearing grossly normal bilaterally Mouth: oral mucosae normal, moist mucous membranes Teeth and gingiva: dentition normal Eyes Eyelids: eyelids normal Conjunctivae: conjunctivae normal Sclera: sclerae normal Pupils: PERRL Neck Neck: full ROM, normal visual inspection Neck mass: No Resp Effort AND Inspection: normal respiratory effort, able to speak in complete sentences, symmetric chest movement Auscultation: Bilateral: Clear to Auscultation Cardio Rate: regular rate Rhythm: regular rhythm Heart Sounds: S1 normal, S2 normal, no murmurs GI Inspection: normal to inspection Auscultation: normal bowel sounds Palpation: soft, no guarding Skin General: no rashes or lesions noted Wounds: no wounds Hair: normal Diabetic Foot Pulses: L dorsalis pedis pulse: normal, R dorsalis pedis pulse: normal Monofilament test: Left foot: normal, Right foot: normal Neuro General: oriented x3 Cranial Nerves: CN's II-XI intact bilaterally Cognition: normal cognition Speech: speech normal Gait: normal gait Extrem General: full ROM, normal capillary refill, normal to inspection Psych Appearance: grossly normal Mental Status: mental status grossly normal Mood: congruent mood Affect: normal affect Speech and Movement: speech and movement normal Attitude: cooperative Thought Process: normal Thought Content: normal Judgment: judgment good Type: type 1, insulin-requiring Glucose control symptoms: Reports nocturnal hypoglycemia Weight and fatigue symptoms: Reports weight loss; denies snoring Cardiopulmonary symptoms: Denies chest pain at rest, dyspnea on exertion, lightheadedness or myalgias GI symptoms: Denies constipation, diarrhea, nausea/dyspepsia or vomiting Skin and extremity symptoms: Denies erectile dysfunction or tingling/numbness/burning Other symptoms: Denies blurry vision or change in vision Pertinent visit history: Denies recent visit to ER, recent hospital admission or recent 911 calls Intake Vital Signs05/10/18 Height 5 ft 9 in 05/10/18 Weight: 229 lb 2 oz 05/10/18 Body Mass Index (BMI) 33.8 05/10/18 Blood Pressure 145/78 H 05/10/18 Blood Pressure Location Lt popliteal 05/10/18 Blood Pressure Position Sitting Intake Visit Reasons: Diabetes follow-up Cream Buyer Required: No Accompanied by: Self Allergies No Known Allergies Allergy (Verified 05/10/18 08:19) Medications insulin glargine (U- 100) 100 unit/mL subcutaneous solution 30 unit SC QDAY #10 ml 03/08/18 [Rx] insulin lispro (U- 100) 100 unit/mL subcutaneous solution See Rx Instructions SC .COMPLEX #30 ml 03/08/18 [Rx] flash glucose scanning reader See Dose Instructions .ROUTE .MEDSUPPLY #1 ea 05/10/18 [Rx Confirmed 05/10/18] flash glucose sensor kit See Dose Instructions .ROUTE .MEDSUPPLY #1 ea 05/10/18 [Rx Confirmed 05/10/18] lisinopril 2.5 mg tablet 2.5 mg PO DAILY #30 tab 05/10/18 [Rx Confirmed 05/10/18] Nurse's Note: blood sugars : low : 60 high : 350 [facility] Medical History Chronic headaches (Acute) Diabetes mellitus type 1 (Acute) Surgical History H/O oral surgery (Acute) Family History Mother Diabetes Social History Smoking Status: Never smoker second hand exposure: No alcohol intake: never substance use type: does not use ROS Const Constitutional: No anorexia, body ache, chills, fatigue, fever(s), frequent falls, decreased energy, malaise, night sweats, weakness, weight change, sleep problems, abnormal sleep pattern, change in appetite, other, headache(s), snoring or excessive sweating Eyes Eyes: No blurry vision, change in vision, double vision, discharge, dry eyes, bulging eyes, floaters, visual disturbances, eye pain, light sensitivity, spots in vision, tunnel vision or other ENT ENT: No abnormal hearing, ear pain, ear discharge, ear pressure, hearing loss, tinnitus, dizziness/vertigo, balance problems, nosebleed/epistaxis, nasal congestion, nasal obstruction, nose pain, sinus pressure, sinus pain, nasal discharge, post nasal drip, headache(s), facial pain, dental pain, dry mouth, bad breath, hoarseness, lip swelling, mouth lesions, mouth pain, sore throat, tongue swelling, throat swelling, other, difficulty swallowing or neck pain Resp Respiratory: No cough, change in phlegm color, chest congestion, excessive phlegm production, hemoptysis, pain on inspiration, shortness of breath, pain with cough, snoring, stridor, wheezing or other Cardio Cardiology: No chest pain at rest, chest pain with exertion, leg pain with exertion, excessive sweating, shortness of breath, dyspnea on exertion, generalized swelling, irregular heart rhythm, lightheadedness, orthopnea, radiating jaw, neck or arm pain, fast heart rate, slow heart rate, palpitations or other Gastro GI: No abdominal pain, belching, bloating, change in bowel habits, change in stool character, coffee ground emesis, constipation, cramping, diarrhea, heartburn, difficulty swallowing, feeling full early, excessive flatus, incontinent of stools, Vomiting blood/hematemesis, blood in stool, loose stools, Black,tarry stools, nausea/dyspepsia, pain with swallowing, vomiting or other Genitourinary Male: No difficulty urinating, burning urination, painful urination, urinary incontinence, urinary frequency, urinary urgency, urinary hesitancy, urinary retention, blood in urine, Frequent nighttime urination/ nocturia, post void dribbling, suprapubic fullness, side pain, sexual problems, genital lesions, genital itching, erectile dysfunction, penile discharge, difficulty with ejaculations, blood in semen, scrotal swelling, testicle lump, testicle pain or other Musc Musculoskeletal: No abnormal walking, joint pain, back pain, deformity, joint swelling, limited range of motion, loss of height, muscle cramps, muscle weakness, decreased muscle mass, body aches, neck pain, numbness, radiating pain into limb, stiffness, tingling or other Skin Skin: No acne, hair loss, change in hair, nail changes, boil, change in skin color, dry skin, redness, excessive hair growth, yellowing of the skin, lesions, itching, rash, skin pain, skin ulcer, sores, skin swelling, wounds or other Breast Breast: No other Neuro Neurology: No frequent falls, weakness, visual disturbances, abnormal hearing, headache(s), abnormal walking, numbness or tingling Psych Psychiatric: No abnormal sleep pattern, No change in appetite Endo Endocrine: No fatigue, other or excessive sweating Aller/Imm Allergy/Immunologic: No lip swelling, tongue swelling, throat swelling, wheezing or itchy eyes Assessment AND Plan 1. Uncontrolled type 1 diabetes mellitus with hypoglycemia without coma E10.649 Plan Diabetes: Occ hypoglycemia at night. Patient is awaekned by his dog. Wore sensor but became dislodged after a couple days wear. Would greatly benefit from rolf sensor for daily use. Due for labs. Not on flor inhibitor or statin. As BP sightly elevated we discussed use of flor inhibitor which he has declined in past but is willing to intiate at this time. Remains active. Consider reapplication of CGM if needed. Enc patient to consider if he needs 15 gram snack at bedtime if he has had extremely busy day which may create likelihood of low BG during sleep. Is checking feet daily. Patient Instructions Discussed importance of being healthy vs overall weight. Plan Detail Other Orders Orders: Other Medications New: Additional Comments 1. Please schedule follow up in 3 months. 2. Lab work one week before appointment. 3. Discussed importance of regular exercise and recommend starting or continuing a regular exercise program for good health. 4. The patient was encouraged to lose weight for good health 5. The importance of monitoring blood sugar regularly was reviewed. 6. The importance of monitoring the HBA1c level regularly was reviewed. 7. The importance of prper foot care and regularly checking feet to prevent sores and loss of limbs was reviewed. 8. The importance of keeping BP at or below 130/80 to prevent stroke, heart attacks, kidney failure, blindness was reviewed. Spent approximately 30 minutes with patient with over 50% of time spent in discussion and counseling regarding medication adjustment, symptoms and treatment of hypoglycemia, diet adherence, and checking BG before driving. Coding Level of Care Code Off vis,est,level 4 Diagnoses Uncontrolled type 1 diabetes mellitus with hypoglycemia without coma E10.649 Glycemic state: with hypoglycemia Coma presence: without coma 05/10/18 1257 <Electronically signed by Effie NAVARRO> Date Effie NAVARRO Cosigner Signature: Date (if applicable) CC: HEMOGLOBIN A1C Collected: 05/10/2018 Status: F Source: [place] 9:39 AM [facility] REPOSITORY TYPE CODE TESTS RESULT OUT OF RANGE REFERENCE UNITS LAB L501.9985 4.2-6.3 % High HGB A1C 8.7 Performed By: #### L501.9985 #### [facility] [address] [place], [address] MICROALB:CREAT Collected: 05/10/2018 Status: F Source: [place] RATIO,RANDOM UR 9:39 AM [facility] REPOSITORY TYPE CODE TESTS RESULT OUT OF RANGE REFERENCE UNITS LAB L501.1200 NO RANGE EST. mg/dL Normal UR CREAT 321.00 LAB L502.0500 NO RANGE EST. mg/L Normal 67.9 MICROALBUMIN ,UR LAB L502.0600 <30 mg/g CRE mg/g CRE Normal 21.2 MALB:CREAT Performed By: #### L502.0250 #### [facility] [address], [address] COMPREHENSIVE METABOLIC Collected: 05/10/2018 Status: F Source: [place] PROFIL 9:39 AM [facility] REPOSITORY TYPE CODE TESTS RESULT OUT OF RANGE REFERENCE UNITS LAB L501.0100 74-106 mg/dL High GLU 187 Result Comment: Fasting Glucose result greater than or equal to 126 mg/dL suggests DIABETES MELLITUS per A.D.A. criteria. Please note revised GLUCOSE reference range effective 2017. LAB L501.1000 7-18 mg/dL Normal BUN 12 LAB L501.1100 0.70-1.30 mg/dL Normal CREAT,SERUM 0.80 Result Comment: The validity of the calculated GFR AND GFRAA in patients over 70 years has not been determined. Clinical correlation is essential. LAB L501.1110 >60 mL/min Normal EST GFR 124 Result Comment: Non- GFR Calc LAB L501.1115 >60 mL/min Normal EST GFR - AA 149 Result Comment: GFR Calc LAB L501.1300 10-20 RATIO Normal BUN/CRE 15.0 LAB L501.1500 6.4-8.2 g/dL Low T PROT 6.0 LAB L501.1800 3.2-5.0 g/dL Normal ALB 3.2 LAB L501.1950 2.2-4.2 g/dL Normal GLOB 2.8 LAB L501.2000 0.9-2.4 RATIO Normal A/G 1.1 LAB L501.2200 8.5-10.1 mg/dL Low CA 8.1 LAB L501.4100 15-37 U/L Normal AST 31 LAB L501.4305 45-117 U/L Normal ALK P 103 LAB L501.4405 16-61 U/L Normal ALT 37 LAB L501.4600 0.20-1.00 mg/dL T Normal BILI 0.40 LAB L501.5300 136-145 mmol/L NA Normal 142 LAB L501.5600 3.5-5.1 mmol/L Low K 3.3 LAB L501.5900 98-107 mmol/L CL Normal 104 LAB L501.6100 21.0-32.0 mmol/L Normal CO2 27.0 LAB L501.6200 5-15 Normal GAP 11 Performed By: #### L500.4050, L500.4100 #### [facility] [address] [facility]. [place], [place], [address] LIPID PROFILE Collected: 05/10/2018 Status: F Source: [place] 9:39 AM [facility] REPOSITORY TYPE CODE TESTS RESULT OUT OF RANGE REFERENCE UNITS LAB L501.4900 200 mg/dL Normal CHOL 82 Result Comment: <200 mg/dL Desirable 200-240 mg/dL Borderline >240 mg/dL High Risk LAB L501.5000 mg/dL Normal TRIG 47 Result Comment: The drugs N-Acetylcysteine and Metamizole may falsely depress this assay. Serum Triglycerides Reference Interval Normal <150 mg/dL Borderline high 150 - 199 mg/dL High 200 - 499 mg/dL Very High > or = 500 mg/dL LAB L501.6400 mg/dL Low HDL 32 Result Comment: The drugs N-Acetylcysteine and Metamizole may falsely depress this assay. Reference Range HDL <40 mg/dL Low HDL Cholesterol HDL >or= 60 mg/dL High HDL Cholesterol LAB L501.6500 0-130 mg/dL Normal LDL 41 LAB L501.6600 5-40 mg/dL Normal VLDL 9 Performed By: #### L500.4050, L500.4100 #### [facility] [address] [place], [address] EMERGENCY DEPARTMENT Observed: 01/18/2018 Status: F Source: [place] SUMMARY 11:29 PM [facility] REPOSITORY [facility] Medical Records Department [address] [place] [address] Emergency Department Summary 01/18/18 2124 MR#: [id number] Acct: [id number] Name: MARCO SOLANO Rep #: [id number] : 1990 27 From: Marcie Riley MD PCP: Mervin Short MD Status: DEP ER - ER Visit Summary Date of Service: 01/18/18 Chief Complaint: Foot injury with possible infection History of Present Illness: The patient is a 27 M who had his left foot stepped on by a horse 2 or 3 weeks ago. He states toes 3 through 5 were ecchymotic. He then developed a red swollen lesion at the base of his fourth toe. He does admit he tried to open it a few days ago but did not get any drainage out of it. He is a diabetic and states his blood sugars have been doing okay. He denies fever or chills. Physical Examination: Vital signs significant for heart rate 114, otherwise normal. Patient sitting upright in bed no acute distress. He is nontoxic appearing. Head neck examination is normal. Heart is regular rate and rhythm without murmur. Lung sounds are clear. Lower extremity examination was erythema with mild edema to the proximal left fourth toe. There is minimal erythema over the metatarsal region of his foot. There is no lymphangitic streaking. I do not find any evidence of fluctuance or focal abscess. Test Results: CBC and chemistry studies are significant only for glucose of 228. Left foot x-rays shows no fracture or dislocation. No underlying bone changes. Emergency Department Course and Treatment: Patient be treated with Bactrim and Keflex. He was advised if erythema worsens or if he gets lymphangitic streaking he is to return for IV antibiotics. Treatment Plan: [] Disposition: Discharge Impression: Left foot cellulitis This note was generated with [employer] dictation software. It may contain incorrect words, spelling, and punctuation that were not noted in review of the chart prior to signing ED Disposition - Plan for ED Patient: Chief Complaint: Wound Referrals: Mervin Short MD [Primary Care Provider] - What to do if you have Problems For any increased pain, shortness of breath, bleeding, nausea or vomiting, chest pain, or any unexpected problems, contact your Primary Care Provider. Call [facility] ([phone]) or report to the closest Emergency Room. Call 911 if necessary. 01/18/182328 <Electronically signed by Marcie Riley MD> Date Marcie Riley MD Cosigner Signature (If Indicated): Date CC: Mervin Short MD DISCHARGE INSTRUCTION Observed: 01/18/2018 Status: F Source: [place] 9:27 PM [facility] REPOSITORY [facility] Medical Records Department [address] [place] [address] Discharge Instruction 01/18/182125 MR#: [id number] Acct: [id number] Name: MARCO SOLANO Rep #: [id number] : 1990 27 From: Marcie Riley MD PCP: Mervin Short MD Status: REG ER ED Disposition - Plan for ED Patient: Disposition: Home or Assisted Living Chief Complaint: Wound Instructions: ED Infec Skin Cellulitis Prescriptions: Cephalexin [Keflex] 500 mg PO Q6 #40 capsule Smz/Tmp Ds [Bactrim Ds] 1 tablet PO BID #20 tablet Referrals: Mervin Short MD [Primary Care Provider] - 1 Week What to do if you have Problems For any increased pain, shortness of breath, bleeding, nausea or vomiting, chest pain, or any unexpected problems, contact your Primary Care Provider. Call [facility] ([phone]) or report to the closest Emergency Room. Call 911 if necessary. 01/18/182126 <Electronically signed by Marcie Riley MD> Date Marcie Riley MD Cosigner Signature (If Indicated): Date CC: Mervin Short MD CBC W/DIFF, AUTOMATED Collected: 01/18/2018 Status: F Source: [place] 8:00 PM [facility] REPOSITORY TYPE CODE TESTS RESULT OUT OF RANGE REFERENCE UNITS LAB L100.1000 4.4-11.0 K/mm3 Normal WBC 9.0 LAB L100.1200 4.6-6.2 M/mm3 Normal RBC 5.45 LAB L100.1300 13.0-16.5 g/dl Normal HGB 15.4 LAB L100.1400 40-54 % Normal HCT 44.8 LAB L100.1500 80-94 fL Normal MCV 82.2 LAB L100.1600 27.0-32.0 pg Normal MCH 28.3 LAB L100.1700 32-36 g/gl Normal MCHC 34.4 LAB L100.1810 11.6-14.6 % Normal RDW CV 12.5 LAB L100.1820 35.1-43.9 fl Normal RDW SD 36.9 LAB L100.1900 150-450 K/mm3 Normal PLT 250 LAB L100.2000 6.2-12.0 fl Normal MPV 10.0 LAB L100.2100 47-70 % Normal NEUT% 66.2 LAB L100.2200 19-41 % Normal LY% 27.3 LAB L100.2300 0-10 % Normal MONO% 4.9 LAB L100.2400 0-5 % Normal EO% 1.3 LAB L100.2500 0-1 % Normal BASO% 0.2 LAB L100.2550 0.0-0.9 % Normal IM GRAN % 0.100 Result Comment: IG% - Immature Granulocytes (promyelocytes, myelocytes and metamyelocytes) > 1% indicates that a LEFT SHIFT is Present. LAB L100.2620 2.0-7.7 X10 3/uL Normal Absolute Neut 6.0 LAB L100.2720 0.83-4.51 X10 3/ul Normal Absolute Lymph 2.46 Performed By: #### L100.0100 #### [facility] [place], [address] BASIC METABOLIC Collected: 01/18/2018 Status: F Source: [place] PROFILE (BMP) 8:00 PM [facility] REPOSITORY TYPE CODE TESTS RESULT OUT OF RANGE REFERENCE UNITS LAB L501.0100 74-106 mg/dL High GLU 228 Result Comment: Glucose result greater than or equal to 200 mg/dL suggests DIABETES MELLITUS per A.D.A. criteria. Please note revised GLUCOSE reference range effective 2017. LAB L501.1000 7-18 mg/dL Normal BUN 15 LAB L501.1100 0.70-1.30 mg/dL Normal CREAT,SERUM 1.01 Result Comment: The validity of the calculated GFR AND GFRAA in patients over 70 years has not been determined. Clinical correlation is essential. LAB L501.1110 >60 mL/min Normal EST GFR 94 Result Comment: Non- GFR Calc LAB L501.1115 >60 mL/min Normal EST GFR - AA 114 Result Comment: GFR Calc LAB L501.1255 ml/min Normal Estimated CRCL 110.83 LAB L501.1300 10-20 RATIO BUN/CRE Normal 14.9 LAB L501.2200 8.5-10 mg/dL .1 CA Normal 8.9 LAB L501.5300 136-14 mmol/L 5 NA Normal 139 LAB L501.5600 3.5-5. mmol/L 1 K Normal 3.6 LAB L501.5900 98-107 mmol/L CL Normal 105 LAB L501.6100 21.0-3 mmol/L 2.0 CO2 Normal 29.0 LAB L501.6200 5-15 GAP Normal 5 Performed By: #### L500.2500 #### [facility] [address] [facility] [place], [place], [address] FOOT MIN 3 VIEWS Observed: 01/18/2018 Status: F Source: [place] 7:40 PM [facility] REPOSITORY [facility] Imaging Services [address] [place] [address] Foot min 3 Views MR#: [id number] Acct: [id number] Name: MARCO SOLANO Rep #: [id number] : 1990 M 27 From: Nikko Sanderson MD PCP: Mervin Short MD Status: REG ER Study: Foot min 3 Views Date of Exam: 01/18/18 Exam# [id number] Ordering Dr: Marcie Riley MD STUDY: X-RAY - LEFT FOOT CLINICAL: Male, 27 years old. Pain. Horse stepped on foot. TECHNIQUE: 3 view(s) of the foot. COMPARISON: None. FINDINGS: There is no evidence of fracture or dislocation. There are no significant degenerative changes. There are no radiodense foreign bodies. RAD/Foot min 3 Views IMPRESSION: No fracture or dislocation. Electronically Signed: Nikko Sanderson, at 20:28 EDT Tel , Service support , CC: Marcie Riley MD; Mervin Short MD [employer]: Signed ENDOCRINOLOGY VISIT Observed: 01/15/2018 Status: F Source: [place] REPORT 3:42 AM [facility] REPOSITORY [facility] [address] [place] [address] [address] [place] [address] OFFICE VISIT Date of Service: 01/14/18 MR#: [id number] Acct: [id number] Name: MARCO SOLANO Rep #: [id number] : 1990 Provider: Effie Felix NP Age/Sex: 27/M Location: [facility] Status: Signed HPI History of present illness Marco Solano is a 27 year old male pt of Dr. Short who presents for follow of diabetes type 1. Diagnosed at age 13. He continues on MDI. Pt denies difficulty with injections or self monitoring of BG. Denies any signs of irritation or infection at of injections. Is taking the insulin as directed. Patient continues on lantus 10 units daily and meal insulin 1 per 7.5 ratio at breakfast and 1-10 remainder of day. Correction 1-50. Did bring his meter today but feels he is doing fairly well. 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 Reports BG readings 100-high 100's for the most part. Appetite good, sleep good. No issues with bowel or bladder. No foot issues. No ER visits. Since our last visit he denies excessive thirst or increased frequency of urination, chest pain or dyspnea, numbness,tingling, or pain in extremities, new or unusual visual symptoms. Has had occ low blood sugars. Dog awakens him in the night if this occurs. Follows a diabetic diet. Is compliant with medication and is tolerating without side effects. At time of visit -Pt denies symptoms of hypertensive emergency (CP,SOB,BROOKE< blurred vision) and hypotension(dizziness, lightheadedness) - Pt denies symptoms of hypoglcemia( sweaty, confusion, anxiety, tremor, hunger, palpitations) and hyperglycemia (polydipsia, polyuria) -Pt denies potential medication adverse effects (cough,myalgia, edema). HYPOGLYCEMIA Aware of hypoglycemia: yes Able to self treat hypoglycemia : yes Frequent low BG readings: No Has supply of glucagon: yes SMBG Checks BG 4-6 times daily Uses [employer]Box 90 day supply. BG average 180 per meter average. Currently occ low in night which creates rebound high mode. Exercise: exceeds 150 minutes weekly Is not sure when last eye exam done; will check I have reviewed vital signs, allergies, current medications, l PMH, SH, FH, No medical records available at time of visit. Type: type 1, insulin-requiring Glucose control symptoms: Reports high fasting glucose Weight and fatigue symptoms: Denies snoring Cardiopulmonary symptoms: Denies chest pain at rest, dyspnea on exertion, lightheadedness or myalgias GI symptoms: Denies constipation, diarrhea, nausea/dyspepsia or vomiting Skin and extremity symptoms: Denies erectile dysfunction Other symptoms: Denies blurry vision or change in vision Self monitoring: Yes Exam Const General: comfortable, well groomed Nutritional Appearance: well nourished Orientation: oriented x3 HENMT Head: normal to inspection Ears: hearing grossly normal bilaterally Mouth: oral mucosae normal, moist mucous membranes Teeth and gingiva: dentition normal Eyes Eyelids: eyelids normal Conjunctivae: conjunctivae normal Sclera: sclerae normal Pupils: PERRL Neck Neck: full ROM, normal visual inspection Neck mass: No Resp Effort AND Inspection: normal respiratory effort, able to speak in complete sentences, symmetric chest movement Auscultation: Bilateral: Clear to Auscultation Cardio Rate: regular rate Rhythm: regular rhythm Heart Sounds: S1 normal, S2 normal, no murmurs GI Inspection: normal to inspection Auscultation: normal bowel sounds Palpation: soft, no guarding Skin General: no rashes or lesions noted Wounds: no wounds Hair: normal Diabetic Foot Pulses: L dorsalis pedis pulse: normal, R dorsalis pedis pulse: normal Monofilament test: Left foot: normal, Right foot: normal Neuro General: oriented x3 Cranial Nerves: CN's II-XI intact bilaterally Cognition: normal cognition Speech: speech normal Gait: normal gait Extrem General: full ROM, normal capillary refill, normal to inspection Psych Appearance: grossly normal Mental Status: mental status grossly normal Mood: congruent mood Affect: normal affect Speech and Movement: speech and movement normal Attitude: cooperative Thought Process: normal Thought Content: normal Judgment: judgment good Intake Vital Signs01/14/18 Height 5 ft 9 in 01/14/18 Weight: 225 lb 2 oz 01/14/18 Body Mass Index (BMI) 33.2 01/14/18 Blood Pressure 118/69 01/14/18 Blood Pressure Location Lt popliteal 01/14/18 Blood Pressure Position Sitting Intake Visit Reasons: Diabetes follow-up Cream Buyer Required: No Accompanied by: Self Is patient in pain?: No Allergies No Known Allergies Allergy (Verified 01/14/18 08:06) Medications insulin glargine (U-100) 100 unit/mL subcutaneous solution 40 unit SC QDAY 12/24/17 [History Confirmed 01/14/18] insulin lispro (U-100) 100 unit/mL subcutaneous solution See Label Instructions SC QAM #20 ml 01/15/18 [Rx Confirmed 01/15/18] Nurse's Note: blood sugars : low : 55 high : 290 [facility] Medical History Chronic headaches (Acute) Diabetes mellitus type 1 (Acute) Surgical History H/O oral surgery (Acute) Family History Mother Diabetes Social History Smoking Status: Never smoker second hand exposure: No alcohol intake: never substance use type: does not use ROS Const Constitutional: No anorexia, body ache, chills, fatigue, fever(s), frequent falls, decreased energy, malaise, night sweats, weakness, weight change, sleep problems, abnormal sleep pattern, change in appetite, other, headache(s), snoring or excessive sweating Eyes Eyes: No blurry vision, change in vision, double vision, discharge, dry eyes, bulging eyes, floaters, visual disturbances, eye pain, light sensitivity, spots in vision, tunnel vision or other ENT ENT: No abnormal hearing, ear pain, ear discharge, ear pressure, hearing loss, tinnitus, dizziness/vertigo, balance problems, nosebleed/epistaxis, nasal congestion, nasal obstruction, nose pain, sinus pressure, sinus pain, nasal discharge, post nasal drip, headache(s), facial pain, dental pain, dry mouth, bad breath, hoarseness, lip swelling, mouth lesions, mouth pain, sore throat, tongue swelling, throat swelling, other, difficulty swallowing or neck pain Resp Respiratory: No cough, change in phlegm color, chest congestion, excessive phlegm production, hemoptysis, pain on inspiration, shortness of breath, pain with cough, snoring, stridor, wheezing or other Cardio Cardiology: No chest pain at rest, chest pain with exertion, leg pain with exertion, excessive sweating, shortness of breath, dyspnea on exertion, generalized swelling, irregular heart rhythm, lightheadedness, orthopnea, radiating jaw, neck or arm pain, fast heart rate, slow heart rate, palpitations or other Gastro GI: No abdominal pain, belching, bloating, change in bowel habits, change in stool character, coffee ground emesis, constipation, cramping, diarrhea, heartburn, difficulty swallowing, feeling full early, excessive flatus, incontinent of stools, Vomiting blood/hematemesis, blood in stool, loose stools, Black,tarry stools, nausea/dyspepsia, pain with swallowing, vomiting or other Genitourinary Male: No difficulty urinating, burning urination, painful urination, urinary incontinence, urinary frequency, urinary urgency, urinary hesitancy, urinary retention, blood in urine, Frequent nighttime urination/ nocturia, post void dribbling, suprapubic fullness, side pain, sexual problems, genital lesions, genital itching, erectile dysfunction, penile discharge, difficulty with ejaculations, blood in semen, scrotal swelling, testicle lump, testicle pain or other Musc Musculoskeletal: No abnormal walking, joint pain, back pain, deformity, joint swelling, limited range of motion, loss of height, muscle cramps, muscle weakness, decreased muscle mass, body aches, neck pain, numbness, radiating pain into limb, stiffness, tingling or other Skin Skin: No acne, hair loss, change in hair, nail changes, boil, change in skin color, dry skin, redness, excessive hair growth, yellowing of the skin, lesions, itching, rash, skin pain, skin ulcer, sores, skin swelling, wounds or other Breast Breast: No other Neuro Neurology: No frequent falls, weakness, visual disturbances, abnormal hearing, headache(s), abnormal walking, numbness or tingling Psych Psychiatric: No abnormal sleep pattern, No change in appetite Endo Endocrine: No fatigue, other or excessive sweating Aller/Imm Allergy/Immunologic: No lip swelling, tongue swelling, throat swelling, wheezing or itchy eyes Assessment AND Plan 1. Type 1 diabetes mellitus without complication E10.9 Plan Continues to have low BG at night which is an issue for him during the summer months mostly. will reduce lantus by 2 units and will also apply the CGM rolf today. Insurance is sending notice of mandatory switch from humalog to admelog insulin. Labs due; ordered. Patient scheduled for eye exam. BP in range Discussed use of flor inhibitor and statin for protective use, patient declines. Orders Orders: Plan Detail Other Orders Orders: Other Medications New: insulin lispro (U- (Admelog U-) Uses 1 unit per 10 carbs I/Cratio and 1-50 correction scal e. May use up to 65 units daily. Discontinued: insulin lispro (U- (Humalog U-) Discontinued Reason: Order 1 unit per 10 carbs SC TID Changed Additional Comments 1. Please schedule follow up in 3 months. 2. Lab work one week before appointment. 3. Discussed importance of regular exercise and recommend starting or continuing a regular exercise program for good health. 4. The patient was encouraged to lose weight for good health 5. The importance of monitoring blood sugar regularly was reviewed. 6. The importance of monitoring the HBA1c level regularly was reviewed. 7. The importance of prper foot care and regularly checking feet to prevent sores and loss of limbs was reviewed. 8. The importance of keeping BP at or below 130/80 to prevent stroke, heart attacks, kidney failure, blindness was reviewed. Spent approximately 45minutes with patient with over 50% of time spent in discussion and counseling regarding medication adjustment, symptoms and treatment of hypoglycemia, diet adherence, and checking BG before driving. Coding Level of Care Code Off vis,est,level 4 Diagnoses Type 1 diabetes mellitus without complication E10.9 Diabetes mellitus type: type 1 Diabetes mellitus complication status: without complication 01/15/18 0342 <Electronically signed by Effie NAVARRO> Date Effie NAVARRO Cosigner Signature: Date (if applicable) CC: PROGRESS Observed: 09/08/2017 Status: COMPLETED Source: POST 12:12 PM [facility] REPOSITORY HNO ID: [id number] Author: Kaitlin [facility] Service: (none) Author Type: (none) Type: Progress Notes Filed: 09/08/2017 12:13 PM Note Text: Marco has a new PCP. Dr. Trevino removed as PCP. PROGRESS Observed: 09/08/2017 Status: COMPLETED Source: POST 12:09 PM [facility] REPOSITORY HNO ID: [id number] Author: Kaitlin Ayers [facility] Service: (none) Author Type: (none) Type: Progress Notes Filed: 09/08/2017 12:13 PM Note Text: [facility] CARE GAP REGISTRY DOCUMENTATION (OUTSIDE TEAMLET) Provider Action/FYI: Please file orders. PSR Action/FYI: Patient identified by name and date of . Last BP/Labs: Blood Pressure: Last 3 Encounter BP Readings: Date: BP: 04/04/2015 134/78 09/06/2013 136/80 07/04/2013 132/72 Lipids: No results found for: CHOL No results found for: HDL LDL Chol, [place] (mg/dL) Date Value 02/07/2011 70 No results found for: TG HGB A1C: Lab Results Component Value Date HBA1C 9.6 12/02/2012 HBA1C 10.0 06/10/2011 HBA1C 9.9 02/07/2011 HBA1C 12.0 12/25/2008 TSH: No results found for: TSH) ? Patient has the following care gap registry disease diagnosis:DM ? Patient has the following open care gaps:DM - Need Urine Albumin / NOT checked in last 12 months ? Needs dilated eye exam - HM overdue ? Has CrCl < 60ml/min and does NOT have Hemoglobin or Hematocrit in last 12 months ? Last HGBA1C is NOT under 9% ? Last office visit: 09/06/2013 ? Future office visit:Physical next available/DM follow up with labs prior Health Maintenance Due: DILATED RETINAL EXAM due on 1991 TETANUS due on 2002 ONE PNEUMOVAX PRIOR TO AGE 65 due on 2007 URINE ALBUMIN CREATININE RATIO due on 02/08/2012 - order pending LDL due on 02/08/2012 - order pending HBA1C due on 06/03/2013 - order pending DIABETIC FOOT EXAM due on 07/04/2014 INFLUENZA(1) due on 02/13/2017 Kaitlin Ayers Cma CNPTOUTREACH Observed: 09/08/2017 Status: COMPLETED Source: M[place] 12:00 AM [facility] REPOSITORY Patient Outreach (INTMWS) MARCO SOLANO ([id number]) 1990 M Date Time Provider Department 09/08/17 KAITLIN AYERS) INTMWS During your visit today, we recorded the following information about you: Kaitlin Ayers Cma 09/08/2017 12:13 PM Signed [facility] CARE GAP REGISTRY DOCUMENTATION (OUTSIDE TEAMLET) Provider Action/FYI: Please file orders. PSR Action/FYI: Patient identified by name and date of . Last BP/Labs: Blood Pressure: Last 3 Encounter BP Readings: Date: BP: 04/04/2015 134/78 09/06/2013 136/80 07/04/2013 132/72 Lipids: No results found for: CHOL No results found for: HDL LDL Chol, [place] (mg/dL) Date Value 02/07/2011 70 No results found for: TG HGB A1C: Lab Results Component Value Date HBA1C 9.6 12/02/2012 HBA1C 10.0 06/10/2011 HBA1C 9.9 02/07/2011 HBA1C 12.0 12/25/2008 TSH: No results found for: TSH) ? Patient has the following care gap registry disease diagnosis:DM ? Patient has the following open care gaps:DM - Need Urine Albumin / NOT checked in last 12 months ? Needs dilated eye exam - HM overdue ? Has CrCl ANDlt; 60ml/min and does NOT have Hemoglobin or Hematocrit in last 12 months ? Last HGBA1C is NOT under 9% ? Last office visit: 09/06/2013 ? Future office visit:Physical next available/DM follow up with labs prior Health Maintenance Due: DILATED RETINAL EXAM due on 1991 TETANUS due on 2002 ONE PNEUMOVAX PRIOR TO AGE 65 due on 2007 URINE ALBUMIN CREATININE RATIO due on 02/08/2012 - order pending LDL due on 02/08/2012 - order pending HBA1C due on 06/03/2013 - order pending DIABETIC FOOT EXAM due on 07/04/2014 INFLUENZA(1) due on 02/13/2017 Kaitlin A[facility] K[facility]lin [facility] 09/08/2017 12:13 PM Signed Marco has a new PCP. Dr. Trevino removed as PCP. Allergies As of Date: 09/08/2017 Noted Allergy Reaction NO KNOWN ALLERGIES 12/25/2008 Date Reviewed: 04/04/2015 Reviewed by: Angeles Oneil LPN - Fully Assessed Reason for Visit: PHMA/Care Gap Outreach [3605] Primary Visit Diagnosis:Type 1 diabetes mellitus without complication (HCC) [E10.9] Prescriptions as of 09/08/2017 Sig: INSULIN DETEMIR (U-100) 100 U* Inject 30 Units subcutaneousl* INSULIN DETEMIR (U-100) 100 U* Inject 30 Units subcutaneousl* INSULIN LISPRO (U-100) 100 UN* Inject subcutaneously. 60 Un* INSULIN SYRINGE-NEEDLE U-100 * use as directed for insulin i* BLOOD SUGAR DIAGNOSTIC STRIPS Check 5 times daily GLUCAGON EMERGENCY KIT (HUMAN* Inject one(1) mg as needed fo* Problem List As Of Date 09/08/2017 Noted Resolved Type 1 diabetes mellitus (HCC) [E10.9] INVALID FOR* CELLULITIS, TOE NOS [L03.039, L02.619] INVALID FOR* Dysuria [R30.0] INVALID FOR* Hematuria [R31.9] INVALID FOR* Frequency of urination [R35.0] INVALID FOR* Encounter Status:Closed by KAITLIN AYERS CMA on 09/08/17 ALLERGIES ALLERGIES DATE TYPE / CODE NAME / CODE REACTION SEVERITY SOURCE 05/13/2018 Drug No Known Unknown [facility] Allergy/416 Allergies/L20047 Hospital 925952(SNOM 0388(RXNORM) Repository ED CT) /[id number] NO KNOWN [facility] 6(SNOMED ALLERGIES [facility]) Repository ENCOUNTERS ENCOUNTERS ADMIT/DISCHARGE ACCOUNT NUMBER ADMITTING ENCOUNTER LOCATION SOURCE CLASS 05/13/2018/05/14/20 [id number] Ambulatory BMSBuilding: [place] [facility] Repository 05/13/2018/05/14/20 [id number] [place], Inpatient [address] ding:PCURoom Repository : [id number]: 1 05/13/2018 [id number] [place], Ambulatory BMSBuilding: [place] Prasanna [facility] [place] Repository 05/13/2018 [id number] [place], Ambulatory BMSBuilding: [place] Prasanna [facility] Repository 05/10/2018 [id number] Ambulatory [facility] ding:LAB Repository 05/10/2018/05/10/20 [id number] Ambulatory BMSBuilding: [place] 18 [facility] Repository 01/18/2018/01/19/20 [id number] Emergency [address] ding:ED Repository 01/14/2018/01/15/20 [id number] Ambulatory BMSBuilding: [place] 18 [facility] Repository 12/31/2017 [id number] Ambulatory BMSBuilding: [place] BMS.[facility] Repository 10/26/2017 [id number] Ambulatory [facility] Repository CENTERBuildi ng:URAE 10/22/2017 [id number] Ambulatory BMSBuilding: [place] BMS.[facility] Repository PAYERS PAYERS ENCOUNTER GUARANTOR PAYER SUBSCRIBER SOURCE 05/13/2018 MARCO Steele Primary [place] [id number] Insurance:MOLINAPolic LIGGETTDOB: [facility] [address] y Number: [id number] [place], [place] [id number] Repository 85506Xhc: ([phone]) Date:2148-58-85GI [phone] () [address] [place] [address] 24989GN: 05/13/2018 Secondary NOT GIVENUNK [place] Insurance:SELF PAY [facility] Number: Effective Repository Date:2018-05-13 05/13/2018 MARCO Steele Primary MARCO [place] [id number] Insurance:MOLINAPolic LIGGETTDOB: [facility] [address] y Number: [id number] [place], [place] [id number] Repository 68[address]Ztu: ([phone]) Date:0891-64-73PR [phone] () [address] [place] [address] 19059WC: 05/13/2018 Secondary NOT GIVENUNK [place] Insurance:SELF PAY [facility] Number: Effective Repository Date:2018-05-13 05/13/2018 MARCO Steele Primary MARCO [place] [id number] Insurance:MOLINAPolic LIGGETTDOB: [facility] [address] y Number: [id number] [place], [place] [id number] Repository 76543Ouw: [phone]) Date:0154-20-44ZT [phone] () [address] [place] [address] 82454WF: 05/13/2018 Secondary NOT GIVENUNK [place] Insurance:SELF PAY [facility] Number: Effective Repository Date:2018-05-13 05/13/2018 MARCO W Primary MARCO Pavon [id number] Insurance:MOLINAPolic LIGGETTDOB: [address] y Number: [id number] [place], [place] [id number] Repository 512[address]Kwq: [phone]) Date:7274-84-73UY [phone] () [address] [place] [address] 54767JL: 05/13/2018 Secondary NOT GIVENUNK [place] Insurance:SELF PAY [facility]: Effective Repository Date:2018-05-13 05/10/2018 MARCO Steele Primary MARCO Steele [place] [id number] Insurance:MOLINAPolic LIGGETTDOB: [address] y Number: [id number], [place] [id number] Repository 059[address]Dtj: ([phone]) Date:7118-85-29ZM [phone] () [address] [place] [address] 24905IZ: 05/10/2018 Secondary NOT GIVENUNK [place] Insurance:SELF PAY [facility] Number: Effective Repository Date:2018-05-10 05/10/2018 MARCO Steele Primary MARCO Steele [place] [id number] Insurance:MOLINAPolic LIGGETTDOB: [address] y Number: [id number], [place] [id number] Repository 79486Hlr: ([phone]) Date:0961-63-18ZA [phone] () [address] [place] [address] 29705KN: 05/10/2018 Secondary NOT GIVENUNK [place] Insurance:SELF PAY [facility] Number: Effective Repository Date:2018-05-10 01/18/2018 MARCO Steele Primary MARCO Steele [place] [id number] Insurance:MOLINAPolic LIGGETTDOB: [address] y Number: [id number], [place] [id number] Repository 03336Xbw: ([phone]) Date:7657-99-98YI [phone] () [address] [place] [address] 15445OE: 01/18/2018 Secondary NOT GIVENUNK [place] Insurance:SELF PAY [facility] Number: Effective Repository Date:2018-01-18 01/14/2018 MARCO Pavon [id number] Insurance:MOLINAPolic LIGGETTDOB: [facility] [address] y Number: [id number], [place] [id number] Repository [address]Lbe: [phone]) Date:1773-63-81RT [phone] (HP) 00429SMFOSHARPSBUR[place], [place] [address]KZ: 01/14/2018 Secondary NOT GIVENUNK [place] Insurance:SELF PAY [facility] Number: Effective Repository Date:2018-01-14 12/31/2017 Marco Primary ANGIE Pavon [id number] Insurance:[employer] [facility] C[facility] [address]Nwmddn [id number] Number: Repository [address]Dwk: [phone] [id number] [phone] () Date:6371-70-98NP [address], [place] [address]EZ: 12/31/2017 Secondary NOT GIVENUNK [place] Insurance:SELF PAY [facility] Number: Effective Repository Date:2017-12-08 10/26/2017 MARCO Steele Primary Insurance:[facility] ANGIE [facility] LIGGETTDOB: CHOICEPolicy Number: LIGGETTDOB: Health System [id number] [id number] [address] Date: [place], [place] [address]Onr: () 10/22/2017 Marco Primary ANGIE Pavon [id number] Insurance:[employer] [facility]TDOB[facility] [address] CARE [id number] [place], [place] Number: Repository [address]Ttp: ([phone]) [id number] [phone] () Date:6340-02-75ZD [address]ILIKQCH, [place] [address]ZB: 10/22/2017 Secondary NOT GIVENUNK [place] Insurance:[facility]LF PAY [facility] Number: Effective Repository Date:2017-10-22
== END 2018-05-14 14:24 | disposition home or self-care (01) | DRG 133 ==
LOC: ED 03:32 → PCU 07:06
PROVIDERS: Admitting Provider Hospitalist; Emergency Provider Emergency Medicine; Family Provider Family Medicine; PCP Family Medicine; Visit Provider Family Medicine
DX: J96.01 Acute respiratory failure with hypoxia (principal); J81.1 Chronic pulmonary edema; E10.65 Type 1 diabetes mellitus with hyperglycemia; I10 Essential (primary) hypertension; E87.6 Hypokalemia; Z79.4 Long term (current) use of insulin; Z23 Encounter for immunization; Z79.899 Other long term (current) drug therapy; F17.220 Nicotine dependence, chewing tobacco, uncomplicated
CPT/HCPCS: 36415; 71046; 71275; 80048; 80053; 80061; 82040; 82043; 82570; 82962; 83036; 83880; 84443; 84484; 85025; 87633; 93005; 93306; 94640; 96374; 96376; 97802; 99218; 99283; Q9957; 90686; A4216; G0378; J1940

== ENCOUNTER → 2020-06-01 09:19 | Outpatient (CLI) | payer MEDICAID, SELFPAY ==
[2020-06-01 08:18] VITALS: BMI 37.6
[2020-06-01 12:44] LABS: Microalbumin,Random Urine 48.6 mg/L (NO RANGE EST.); Microalbumin:Creatinine Ratio 39.5 mg/g CRE (<30 mg/g CRE)
[2020-06-01 12:51] LABS: ALB/GLOB Ratio 1.2 RATIO (0.9-2.4); AST(SGOT) 14 U/L (15-37); Alanine Aminotransfer ALT/SGPT 24 U/L (16-61); Albumin, Serum 3.7 g/dL (3.2-5.0); Alkaline Phosphatase 99 U/L (45-117); Anion Gap 3 (5-15); BUN 14 mg/dL (7-18); BUN/Creat Ratio 16.8 RATIO (10-20); Calcium,Total 8.5 mg/dL (8.5-10.1); Chloride 109 mmol/L (98-107); Cholesterol 101 mg/dL (200); Creatinine, Serum 0.83 mg/dL (0.70-1.30); EST Glomerular Filtration Rate 116 mL/min (>60); Est Glom Filt Rate - Afr Amer 140 mL/min (>60); Globulin 3.2 g/dL (2.2-4.2); Glucose 211 mg/dL (74-106); High Density Lipoprotein 34 mg/dL; Protein, Total 6.9 g/dL (6.4-8.2); Sodium Level 140 mmol/L (136-145); Thyroid Stim Hormone (TSH) 1.48 uIU/mL (0.358-3.74); Triglycerides 43 mg/dL; Very Low Density Lipoprotein 9 mg/dL (5-40)
== END ==
PROVIDERS: PCP Family Medicine; Referring Provider Internal Medicine Endocrinology, Diabetes & Metabolism; Visit Provider Internal Medicine Endocrinology, Diabetes & Metabolism
DX: E10.65 Type 1 diabetes mellitus with hyperglycemia (principal)
CPT/HCPCS: 36415; 80053; 80061; 82043; 82570; 84443

== ENCOUNTER → 2021-02-12 09:21 | Outpatient (CLI) | payer MEDICAID, SELFPAY ==
[2021-02-12 12:31] LABS: Glucose 182 mg/dL (74-106)
[2021-02-13 13:09] LABS: C-Peptide < 0.1 ng/mL (1.1-4.4)
== END ==
PROVIDERS: PCP Family Medicine; Referring Provider Nurse Practitioner Family; Visit Provider Nurse Practitioner Family
DX: E10.649 Type 1 diabetes mellitus with hypoglycemia without coma (principal)
CPT/HCPCS: 36415; 82947; 84681

== ENCOUNTER → 2023-04-22 | Outpatient (CLI) | payer MEDICAID, SELFPAY ==
[2023-04-22 10:58] LABS: Microalbumin,Random Urine 23.1 mg/L (NO RANGE EST.); Microalbumin:Creatinine Ratio 23.6 mg/g CRE (<30 mg/g CRE)
[2023-04-22 11:13] LABS: AST(SGOT) 31 U/L (15-37); Alanine Aminotransfer ALT/SGPT 50 U/L (16-61); Albumin, Serum 3.7 g/dL (3.2-5.0); Alkaline Phosphatase 133 U/L (45-117); Anion Gap 5 (5-15); BUN 19 mg/dL (7-18); BUN/Creat Ratio 19.7 RATIO (10-20); Calcium,Total 8.7 mg/dL (8.5-10.1); Chloride 102 mmol/L (98-107); Cholesterol 150 mg/dL (200); Creatinine, Serum 0.96 mg/dL (0.70-1.30); EST Glomerular Filtration Rate 96 mL/min (>60); Est Glom Filt Rate - Afr Amer 116 mL/min (>60); Globulin 3.8 g/dL (2.2-4.2); Glucose 145 mg/dL (74-106); High Density Lipoprotein 49 mg/dL; Potassium 4.2 mmol/L (3.5-5.1); Protein, Total 7.5 g/dL (6.4-8.2); Sodium Level 137 mmol/L (136-145); Thyroid Stim Hormone (TSH) 2.09 uIU/mL (0.358-3.74); Triglycerides 37 mg/dL; Very Low Density Lipoprotein 7 mg/dL (5-40)
== END | disposition home or self-care (01) ==
LOC: LAB 09:41
PROVIDERS: Referring Provider Nurse Practitioner Family; Visit Provider Nurse Practitioner Family
DX: E10.65 Type 1 diabetes mellitus with hyperglycemia (principal)
CPT/HCPCS: 36415; 80053; 80061; 82043; 82306; 82570; 84443